=== PATIENT | female | born 1995 | race Hispanic/Latino ===

== ENCOUNTER 2020-02-03 12:02 | Outpatient (CLI) | payer OTHER, SELFPAY ==
[2020-02-03 17:48] LABS: Basophils Percent Auto 0.2 % (0.2-1.2); Eosinophils Percent Auto 0.5 % (0-4.4); Hematocrit 34.4 % (37.0-47.0); Hemoglobin 11.4 g/dL (12.0-15.0); Immature Granulocyte Absolute 0.04 K/mm3 (0.00-0.031); Immature Granulocyte Percent A 0.6 % (0-0.5); Lymphocytes Absolute Auto 1.93 K/mm3 (0.9-3.2); Lymphocytes Percent Auto 29.4 % (18.3-44.2); Mean Corpuscular HGB Conc 33.1 g/dl (32-36); Mean Corpuscular Volume 96.6 fl (80-100); Mean Platelet Volume 9.8 fl (7.4-10.4); Monocytes Absolute Auto 0.4 K/mm3 (0.1-0.6); Monocytes Percent Auto 6.7 % (2.6-8.5); Neutrophils Absolute Auto 4.1 K/mm3 (1.3-6.7); Neutrophils Percent Auto 62.6 % (45.5-73.1); Platelet Count Result 183 k/mm3 (150-375); Red Blood Count 3.56 M/mm3 (4.2-5.4); White Blood Count 6.6 K/mm3 (4.5-10.0)
[2020-02-03 17:58] LABS: Glucose 1 Hour PP 50gm Dose 96 mg/dL
[2020-02-03 18:40] LABS: HIV 1/2 Ab P24 Ag Result Negative (Negative)
[2020-02-06 11:56] LABS: Rapid Plasma Reagin Non-Reactive (NonReactive)
== END 2020-02-03 12:03 | disposition home or self-care (01) ==
LOC: ANHOBOP 03-19 12:04
PROVIDERS: PCP Physician Assistant; Visit Provider Student in an Organized Health Care Education/Training Program
DX: Z34.90 Encounter for supervision of normal pregnancy, unspecified, unspecified trimester (principal); Z3A.00 Weeks of gestation of pregnancy not specified
CPT/HCPCS: 36415; 82947; 85025; 86592; 86703; G0432

== ENCOUNTER 2020-03-19 18:37 | Outpatient (CLI) | payer OTHER, SELFPAY ==
[2020-03-19 18:56] VITALS: BP 144/81; PULSE 79
[2020-03-19 19:06] VITALS: BP 137/74; PULSE 77
[2020-03-19 19:13] LABS: Basophils Percent Auto 0.1 % (0.2-1.2); Eosinophils Percent Auto 0.3 % (0-4.4); Hematocrit 30.7 % (37.0-47.0); Hemoglobin 10.2 g/dL (12.0-15.0); Immature Granulocyte Absolute 0.04 K/mm3 (0.00-0.031); Immature Granulocyte Percent A 0.6 % (0-0.5); Lymphocytes Percent Auto 26.8 % (18.3-44.2); Mean Corpuscular HGB Conc 33.2 g/dl (32-36); Mean Corpuscular Hemoglobin 30.6 pg (26-34); Mean Corpuscular Volume 92.2 fl (80-100); Mean Platelet Volume 10.8 fl (7.4-10.4); Monocytes Absolute Auto 0.5 K/mm3 (0.1-0.6); Monocytes Percent Auto 7.5 % (2.6-8.5); Neutrophils Absolute Auto 4.3 K/mm3 (1.3-6.7); Neutrophils Percent Auto 64.7 % (45.5-73.1); Platelet Count Result 150 k/mm3 (150-375); Red Blood Count 3.33 M/mm3 (4.2-5.4); Red Cell Distribution Width 12.6 % (11.5-14.5); White Blood Count 6.7 K/mm3 (4.5-10.0)
[2020-03-19 19:16] VITALS: BP 137/75; PULSE 73
[2020-03-19 19:18] LABS: Creatinine Urine 171.1 mg/dL; Total Protein Urine Random 15 mg/dL; Ur Ttl Prot Creatinine Ratio 0.09 mg/mg (0-0.20)
[2020-03-19 19:26] LABS: Add Urine Microscopic? YES; Appearance Urine Cloudy (Clear); Bacteria Urine Trace /hpf; Bilirubin Urine Negative (Negative); Blood Urine Negative (Negative); Color Urine Yellow (Yellow); Glucose Urine UA Negative (Negative); Ketones Urine Negative (Negative); Leukocyte Esterase Ur 1+ LEU/UL (NEGATIVE); Mucus Urine Moderate /lpf; Nitrate Urine Negative (Negative); Protein Urine 1+ mg/dL (Negative); Squamous Epithelial Cell Urine Many /hpf (Few)
[2020-03-19 19:27] LABS: Alanine Aminotransferase 21 U/L (4-35); Albumin Level 3.5 g/dL (3.5-5.1); Alkaline Phosphatase 80 U/L (38-126); Anion Gap 6 mmol/L (8-16); Aspartate Amino Transferase 25 U/L (14-36); Bilirubin,Total 0.3 mg/dL (0.2-1.3); Blood Urea Nitrogen 8 mg/dL (7-17); Calcium 9.1 mg/dL (8.4-10.2); Carbon Dioxide 24 mmol/L (22-30); Chloride 105 mmol/L (98-107); Estimated Glomerular Filt Rate > 60; Glucose 101 mg/dL (65-105); Potassium 3.6 mmol/L (3.4-5.0); Sodium 135 mmol/L (137-145)
[2020-03-19 19:31] VITALS: BP 136/76; PULSE 77
[2020-03-19 19:35] VITALS: BP 136/76; PULSE 79
== END 2020-03-19 20:00 | disposition home or self-care (01) ==
LOC: ANHOBOP 18:44 → ANHOBPP 03-26 08:54
PROVIDERS: PCP Physician Assistant; Visit Provider Student in an Organized Health Care Education/Training Program
DX: O13.3 Gestational [pregnancy-induced] hypertension without significant proteinuria, third trimester (principal); Z3A.39 39 weeks gestation of pregnancy
CPT/HCPCS: 36415; 59025; 80053; 81001; 82570; 84156; 84550; 85025; 87086; 99199

== ENCOUNTER 2020-03-21 13:10 | Outpatient (CLI) | payer OTHER, SELFPAY ==
--- NOTE | ~2020-03-21 | US_ITS ---
EXAMINATION: US OB follow up DATE: 03/21/2020 14:00 INDICATION: Assess growth and position during third trimester of . TECHNIQUE: Real-time ultrasound of the pelvis was performed. The interpreting radiologist was not pre sent for the study. COMPARISON: None. FINDINGS: There is a single living fetus in breech presentation. The placenta is fundal. heart rate is 1 33 beats per minute (bpm). The amniotic fluid index is 9.1 cm, which is normal (5th%-95%: 7.9-24.9 c m at 35 weeks estimated gestational age). The following biometric data were obtained: BPD: 9.4 cm -> 38 weeks 1 days Head circumference: 33.7 cm -> 38 weeks 4 days Abdominal circumference: 33.5 cm -> 37 weeks 3 days Femur length: 7.6 cm -> 38 weeks 6 days These measurements are concordant. Head circumference to abdominal circumference ratio: 1.00 (normal range 0.89-1.06). Estimated weight: 3366 g (+/-) 505 g. or 7 lbs. 7 oz. (+/-) 1 lbs. 2 oz. IMPRESSION: 1. Single living fetus in breech presentation with heart rate of 133 bpm. 2. Gestational age by ultrasound of 38 weeks 2 day(s) +/- 2 week(s) 5 day(s) with ultrasound estimate d date of delivery (PJ) of 04/02/2020. Estimated weight is 97th percentile by Hadlock criteria when 04/21/2020 is used as the PJ. Please correlate with clinical information or earlier ultrasounds for most accurate PJ. 3. Normal amniotic fluid index of 9.1 cm. Reviewed, dictated and finalized at location A. AND [employer] OPERATOR IMPRESSION: 1. Single living fetus in breech presentation with heart rate of 133 bpm. 2. Gestational age by ultrasound of 38 weeks 2 day(s) +/- 2 week(s) 5 day(s) wi th ultrasound estimated date of delivery (PJ) of 04/02/2020. Estimated w eight is 97th percentile by Hadlock criteria when 04/21/2020 is used as the PJ. Please correlate with clinical information or earlier ultrasounds for most accu rate PJ. 3. Normal amniotic fluid index of 9.1 cm.
== END 2020-03-21 13:11 | disposition home or self-care (01) ==
PROVIDERS: PCP Physician Assistant; Visit Provider Student in an Organized Health Care Education/Training Program
DX: Z36.89 Encounter for other specified antenatal screening (principal); Z3A.38 38 weeks gestation of pregnancy
CPT/HCPCS: 76816

== ENCOUNTER 2020-03-29 19:30 | Outpatient (CLI) | payer OTHER, SELFPAY ==
[2020-03-29 20:09] LABS: Basophils Percent Auto 0.1 % (0.2-1.2); Eosinophils Percent Auto 0.3 % (0-4.4); Hematocrit 30.3 % (37.0-47.0); Hemoglobin 10.2 g/dL (12.0-15.0); Immature Granulocyte Absolute 0.08 K/mm3 (0.00-0.031); Lymphocytes Absolute Auto 2.34 K/mm3 (0.9-3.2); Lymphocytes Percent Auto 30.7 % (18.3-44.2); Mean Corpuscular HGB Conc 33.7 g/dl (32-36); Mean Corpuscular Hemoglobin 30.5 pg (26-34); Mean Corpuscular Volume 90.7 fl (80-100); Mean Platelet Volume 11.1 fl (7.4-10.4); Monocytes Absolute Auto 0.5 K/mm3 (0.1-0.6); Monocytes Percent Auto 6.4 % (2.6-8.5); Neutrophils Absolute Auto 4.7 K/mm3 (1.3-6.7); Neutrophils Percent Auto 61.5 % (45.5-73.1); Platelet Count Result 162 k/mm3 (150-375); Red Blood Count 3.34 M/mm3 (4.2-5.4); Red Cell Distribution Width 13.2 % (11.5-14.5); White Blood Count 7.6 K/mm3 (4.5-10.0)
[2020-03-29 20:14] LABS: Add Urine Microscopic? YES; Appearance Urine Cloudy (Clear); Bacteria Urine 2+ /hpf; Bilirubin Urine Negative (Negative); Blood Urine 1+ (Negative); Color Urine Yellow (Yellow); Glucose Urine UA Negative (Negative); Ketones Urine Negative (Negative); Leukocyte Esterase Ur 1+ LEU/UL (NEGATIVE); Mucus Urine Rare /lpf; Nitrate Urine Negative (Negative); Protein Urine 1+ mg/dL (Negative); RBC Urine 0-2 /hpf (0-2); Specific Grav Ur 1.015 (1.001-1.035); Squamous Epithelial Cell Urine Many /hpf (Few); Urobilinogen Urine Negative mg/dL (<2.0)
[2020-03-29 20:17] LABS: Creatinine Urine 109.7 mg/dL; Total Protein Urine Random 14 mg/dL; Ur Ttl Prot Creatinine Ratio 0.13 mg/mg (0-0.20)
[2020-03-29 20:21] LABS: Alanine Aminotransferase 30 U/L (4-35); Albumin Level 3.5 g/dL (3.5-5.1); Alkaline Phosphatase 100 U/L (38-126); Anion Gap 6 mmol/L (8-16); Aspartate Amino Transferase 30 U/L (14-36); Bilirubin,Total 0.4 mg/dL (0.2-1.3); Blood Urea Nitrogen 10 mg/dL (7-17); Carbon Dioxide 22 mmol/L (22-30); Chloride 104 mmol/L (98-107); Estimated Glomerular Filt Rate > 60; Glucose 101 mg/dL (65-105); Potassium 3.6 mmol/L (3.4-5.0); Sodium 132 mmol/L (137-145); Uric Acid 5.2 mg/dL (2.5-7.5)
== END 2020-03-29 20:41 | disposition home or self-care (01) ==
PROVIDERS: Obstetrics & Gynecology; PCP Physician Assistant; Visit Provider Student in an Organized Health Care Education/Training Program
DX: O13.9 Gestational [pregnancy-induced] hypertension without significant proteinuria, unspecified trimester (principal); Z3A.00 Weeks of gestation of pregnancy not specified
CPT/HCPCS: 36415; 59025; 80053; 81001; 82570; 84156; 84550; 85025; 87086

== ENCOUNTER 2020-03-31 08:18 | Outpatient (RCR) | payer OTHER, SELFPAY ==
[2020-03-28 17:32] VITALS: BP 145/86; PULSE 86
[2020-03-31 08:42] VITALS: BP 130/76; PULSE 96
== END 2020-04-09 07:53 | disposition home or self-care (01) ==
LOC: ANHOBOP 08:18
PROVIDERS: PCP Physician Assistant; Visit Provider Student in an Organized Health Care Education/Training Program
DX: O16.3 Unspecified maternal hypertension, third trimester (principal); Z3A.36 36 weeks gestation of pregnancy; Z3A.37 37 weeks gestation of pregnancy
CPT/HCPCS: 59025

== ENCOUNTER 2020-04-03 09:35 | Inpatient (IN) | payer OTHER, SELFPAY ==
[2020-04-03] VITALS (86 sets, daily range): BP systolic 103–169; BP diastolic 51–117; PULSE 70–126; RESP 14–20; TEMP 36.2–36.7; O2SAT 89–100; BMI 33.9
--- NOTE | 2020-04-03 09:21 | PM.IMHP ---
H&P: HPI History of Present Illness Date/Time: 04/03/20 09:21 Chief Complaint: powers in the third trimester gestational hypertension malpresentation Narrative: Conchita Rodriguez is a 24 year old at 37wd who presents for ECV and possible delivery for breech positioning in the setting of worsening gestational hypertension. Pt has been complicated by gestational hypertension. Pt reports chronic headaches throughout the . She has had significant worsening of edema. Her blood pressures have continue to be elevated despite starting on antihypertensives. Her preeclampsia labwork has been negative. She has had regular testing which was reassuring. Review of Systems Review of Systems: All systems reviewed & are unremarkable except as noted in HPI and below PMFSH Family History Family History (Updated 03/21/20 @ 12:27 by Cecilia Posye RN) Mother Uterine cancer History of hysterectomy Grandparent Uterine cancer History of hysterectomy Social History Social History Substance use: never Spiritual care concerns: No Meds Home Medications and Allergies Home Medications Medication Instructions Recorded Confirmed Type polyethylene glycol 3350 [Miralax] 17 g PO DAILY PRN 03/21/20 03/31/20 History prenat.vits,aleida,[id number] 1 tablet PO DAILY 03/21/20 03/31/20 History [ #2] labetalol 200 mg PO Q12H 03/29/20 03/31/20 History Allergies Allergy/AdvReac Type Severity Reaction Status Date / Time No Known Allergies Allergy Verified 03/21/20 12:23 Exam Const: General: cooperative and healthy appearing Nutritional Appearance: well nourished Orientation/consciousness: patient oriented x3 Limitations: no limitations HENMT: Head: normal to inspection Eyes: General: appearance normal, both eyes and all related structures Neck: Neck: normal visual inspection and full ROM Resp: Effort & Inspection: normal respiratory effort and able to speak in complete sentences Auscultation: clear to auscultation bilaterally Cardio: Jugular venous distension: no JVD Rate: regular rate Rhythm: regular rhythm GI: Inspection: normal to inspection and other (Gravid) GI Palp: No abdominal tenderness and No Hepatomegaly present Auscultation: normal bowel sounds : OB/external & speculum: external exam normal; no bleeding Manual OB Exam: Deferred manual OB exam Skin: General skin exam: normal color and no rashes or lesions noted Neuro: General: patient oriented x3 Cranial nerves: Yes CN's II-XII intact bilaterally Cognition (Neuro): normal cognition Speech: normal speech Extrem: General: edema (lower extremity ) bilateral Psych: Appearance: grossly normal Mental Status: mental status grossly normal Assessment and Plan Assessment and plan (1) Supervision of high risk , unspecified, third trimester: Code(s): O09.93 - Supervision of high risk , unspecified, third trimester Status: Acute Assessment and Plan: 24 yo at 37w3d Rh + GBS +, will need PCN in case of induction FHT cat 1 no ctx on toco EFW by US [id number] on 04/02/20 Breech presentation, plan for ECV followed by IOL for GHTN if successful if ECV unsuccessful will plan for primary delivery for breech presentation (2) Gestational hyperglycemia: Code(s): O99.810 - Abnormal glucose complicating Status: Acute Assessment and Plan: Pt with worsening GHTN pt reports persistent COULTER throughout and worsening LE edema preeclampsia labls neg for proteinuria or end organ disease pt has been compliant with twice weekly NSTs, all reactive US showed EFW of 8lb4oz on 04/02, breech presentation BP remain elevated despite starting antihypertensive 1 week ago plan for delivery >37w for worsening GHTN (3) malpresentation: Code(s): O32.9XX0 - Maternal care for malpresentation of fetus, unspecified, not ap
[2020-04-03 10:37] LABS: Basophils Percent Auto 0.1 % (0.2-1.2); Eosinophils Percent Auto 0.3 % (0-4.4); Hematocrit 32.5 % (37.0-47.0); Hemoglobin 10.6 g/dL (12.0-15.0); Immature Granulocyte Absolute 0.06 K/mm3 (0.00-0.031); Immature Granulocyte Percent A 0.8 % (0-0.5); Lymphocytes Absolute Auto 1.69 K/mm3 (0.9-3.2); Lymphocytes Percent Auto 22.1 % (18.3-44.2); Mean Corpuscular HGB Conc 32.6 g/dl (32-36); Mean Corpuscular Hemoglobin 29.4 pg (26-34); Mean Corpuscular Volume 90.3 fl (80-100); Mean Platelet Volume 10.9 fl (7.4-10.4); Monocytes Absolute Auto 0.6 K/mm3 (0.1-0.6); Monocytes Percent Auto 7.7 % (2.6-8.5); Neutrophils Absolute Auto 5.3 K/mm3 (1.3-6.7); Nucleated Red Blood Cells Perc 0.3 % (0.0-0.2); Platelet Count Result 201 k/mm3 (150-375); Red Cell Distribution Width 13.8 % (11.5-14.5); White Blood Count 7.6 K/mm3 (4.5-10.0)
[2020-04-03 10:50] LABS: Alanine Aminotransferase 33 U/L (4-35); Albumin Level 3.8 g/dL (3.5-5.1); Alkaline Phosphatase 120 U/L (38-126); Anion Gap 10 mmol/L (8-16); Aspartate Amino Transferase 33 U/L (14-36); Bilirubin,Total 0.5 mg/dL (0.2-1.3); Blood Urea Nitrogen 9 mg/dL (7-17); Calcium 9.1 mg/dL (8.4-10.2); Carbon Dioxide 20 mmol/L (22-30); Chloride 106 mmol/L (98-107); Estimated CRCL calculation 136 ml/min; Estimated Glomerular Filt Rate > 60; Glucose 80 mg/dL (65-105); Potassium 4.2 mmol/L (3.4-5.0); Sodium 136 mmol/L (137-145); Uric Acid 5.3 mg/dL (2.5-7.5)
--- NOTE | 2020-04-03 11:10 | LDADM ---
This patient, Conchita Rodriguez, was admitted to Labor/Delivery/Recovery 119 on 04/03/20 at 09:35. Plans for labor, pain management and were discussed with patient. Patient/family oriented to hospital policies and general routines including ID bracelet, bed and alarms, visiting hours, pain management, procedures, bathroom and other care routines, personal items, smoking policy, room service/diet and guest tray routines, infant security routines, and visiting hours. Patient/Family are encouraged to report perceived risks to care and to ask questions if they do not understand what they are told or what they should do. See OBIX for further documentation.
[2020-04-03] MEDS: TERBUTALINE SULFATE 1 MG/ML VIAL 0.25 MG SUB-Q (11:37)
--- NOTE | 2020-04-03 11:42 | WPDANESEPPF ---
Anes - Initial Pre Proc Eval Procedure: Operation Date: 04/03/20 12:00 Proposed Procedures p Section - David Pizarro MD Date/Time: 04/03/20 11:42 Surgeon: David Pizarro MD Pre Op Diagnosis: Version/Section Patient Data Age: 24 Gender: F Height: 1.65 m Weight: 92.5 kg Last Vital Signs Pulse 82 04/03/20 11:16 BP 134/84 04/03/20 11:16 Allergies Allergy/AdvReac Type Severity Reaction Status Date / Time No Known Allergies Allergy Verified 03/21/20 12:23 Home Medications Medication Instructions Recorded Confirmed Type polyethylene glycol 3350 [Miralax] 17 g PO DAILY PRN 03/21/20 03/31/20 History prenat.vits,aleida,[id number]-[id number] 1 tablet PO DAILY 03/21/20 03/31/20 History [ #2] labetalol 200 mg PO Q12H 03/29/20 03/31/20 History Laboratory Tests 04/03/20 04/03/20 04/03/20 10:21 10:21 10:21 WBC 7.6 K/mm3 K/mm3 (4.5-10.0) RBC 3.60 M/mm3 L M/mm3 (4.2-5.4) Hgb 10.6 g/dL L g/dL (12.0-15.0) Hct 32.5 % L % (37.0-47.0) MCV 90.3 fl fl (80-100) MCH 29.4 pg pg (26-34) MCHC 32.6 g/dl g/dl (32-36) RDW 13.8 % % (11.5-14.5) Plt Count 201 k/mm3 k/mm3 (150-375) MPV 10.9 fl H fl (7.4-10.4) Immature Gran % (Auto) 0.8 % H % (0-0.5) Neut % (Auto) 69.0 % % (45.5-73.1) Lymph % (Auto) 22.1 % % (18.3-44.2) [place] % (Auto) 7.7 % % (2.6-8.5) Eos % (Auto) 0.3 % % (0-4.4) Baso % (Auto) 0.1 % L % (0.2-1.2) Lymph # (Auto) 1.69 K/mm3 K/mm3 (0.9-3.2) [place] # (Auto) 0.6 K/mm3 K/mm3 (0.1-0.6) Eos # (Auto) 0.0 K/mm3 K/mm3 (0-0.3) Baso # (Auto) 0.0 K/mm3 K/mm3 (0.0-0.1) Abs Immat Gran (auto) 0.06 K/mm3 H K/mm3 (0.00-0.031) Absolute Neuts (auto) 5.3 K/mm3 K/mm3 (1.3-6.7) Absolute Nucleated RBC 0.0 K/mm3 K/mm3 (0.0-0.012) Nucleated RBC % 0.3 % H % (0.0-0.2) Sodium Potassium Chloride Carbon Dioxide Anion Gap BUN Creatinine Estim Creat Clear Calc Estimated GFR Glucose Uric Acid Calcium Total Bilirubin AST ALT Alkaline Phosphatase Total Protein Albumin RPR Pending HIV 1&2 Ab/P24 Ag 4thGn Blood Type A Positive Antibody Screen Negative 04/03/20 04/03/20 10:23 10:26 WBC RBC Hgb Hct MCV MCH MCHC RDW Plt Count MPV Immature Gran % (Auto) Neut % (Auto) Lymph % (Auto) [place] % (Auto) Eos % (Auto) Baso % (Auto) Lymph # (Auto) [place] # (Auto) Eos # (Auto) Baso # (Auto) Abs Immat Gran (auto) Absolute Neuts (auto) Absolute Nucleated RBC Nucleated RBC % Sodium 136 mmol/L L mmol/L (137-145) Potassium 4.2 mmol/L mmol/L (3.4-5.0) Chloride 106 mmol/L mmol/L (98-107) Carbon Dioxide 20 mmol/L L mmol/L (22-30) Anion Gap 10 mmol/L mmol/L (8-16) BUN 9 mg/dL mg/dL (7-17) Creatinine 0.60 mg/dL L mg/dL (0.7-1.0) Estim Creat Clear Calc 136 ml/min ml/min Estimated GFR > 60 (59 - ) Glucose 80 mg/dL mg/dL (65-105) Uric Acid 5.3 mg/dL mg/dL (2.5-7.5) Calcium 9.1 mg/dL mg/dL (8.4-10.2) Total Bilirubin 0.5 mg/dL mg/dL (0.2-1.3) AST 33 U/L U/L (14-36) ALT 33 U/L U/L (4-35) Alkaline Phosphatase 120 U/L U/L (38-126) Total Protein 7.0 g/dL g/dL (6.3-8.2) Albumin 3.8 g/dL g/dL (3.5-5.1) RPR HIV 1&2 A
[2020-04-03] MEDS: ceFAZolin 2 GM/D5W 50 ML 2 GM/50 ML BAG IVPB (12:25)
[2020-04-03 12:28] LABS: HIV 1/2 Ab P24 Ag Result Negative (Negative)
--- NOTE | 2020-04-03 13:21 | P.OP_ITS ---
Procedure Note - Detailed Date of procedure: 04/03/20 Pre-op diagnosis: Version/Section Post-op diagnosis: same Procedure performed: External cephalic version Description of procedure: The patient was counseled as above. Risks, benefits, and alternatives of ECV were discussed. Sonogram confirmed that the fetus was in breech position and no evidence of a nuchal cord with color doppler. The NST was reactive. The patient has no medical contraindications for terbutaline administration. Terbutaline 0.25mg sq was given by the RN. Epidural was placed by anesthesia in the OR. The patent was placed in the supine position with a leftward tilt. Bedside US again confirmed breech presentation with the head in the RUQ and the back up. Decision was made to proceed with a forward role technique in a Counter-clockwise fashion. The buttocks was lifted out of the pelvis with direct suprapubic pressure. Once the fetus was disengaged, pressure was applied to the head to role in a counter-clockwise direction. Pressure was also applied to the buttock to rotate counter-clockwise cephalad. Direct BSUS was again performed to check postition. The version was unsuccessful on the first attempt. FHT were noted to be reassuring. The procedure was attempted 3 other times with monitoring of FHT between attempts. The position was unable to be rotated to vertex. The fetus was placed back on the monitor following the p rocedure. FHT were noted to be 145 bpm. Decision was made to proceed with primary delivery given malpresentation in the setting of gestational hypertension. Anesthesia: epidural Surgeon: David Pizarro MD Estimated blood loss (mL): 0 Drains: No Packing: No Pathology: none sent Complications: No immediate complications Condition: stable Disposition: floor
--- NOTE | 2020-04-03 13:23 | PM.PROC ---
Procedure Note - Detailed Date of procedure: 04/03/20 Pre-op diagnosis: Version/Section labor Post-op diagnosis: same Procedure performed: primary low transverse section Description of procedure: The patient was in the operating room where epidural anesthesia was found to be adequate after failed ECV. She was then prepped and draped in the usual sterile fashion in the dorsal supine position with a leftward tilt. A Pfannenstiel skin incision was then made with the scalpel and carried through to the underlying layer of fascia. The fascia was then incised in the midline and the incision extended laterally with the You scissors. The superior aspect of the fascia was then grasped with the Jakub clamps, elevated, and the underlying rectus muscles dissected off bluntly and sharply. Attention was then turned to the inferior aspect of this incision which, in a similar fashion, was grasped, tented up with the Jakub clamps, and the rectus muscles dissected off both bluntly and sharply. The rectus muscles were then in the midline, and the peritoneum identified, tented up, and entered sharply with the Metzenbaum scissors. The peritoneal incision was then extended superiorly and inferiorly with good visualization of the bladder. The bladder blade was then inserted and the vesicouterine peritoneum identified, grasped with the pick-ups and entered sharply with the Metzenbaum scissors. This incision was then extended laterally and the bladder flap created digitally. The bladder blade was then reinserted and the lower uterine segment incised in a low, transverse fashion with the scalpel. The uterine incision was then extended in a cephalad-caudad direction bluntly. The bladder blade was removed. The buttocks and back were identified. The hips were grasped and uday to the hysterotomy. Gentle fundal pressure was applied to help deliver the buttocks to the level of the hips. The legs were flexed at the knee and delivered one at a time. Gentle traction was placed to the body to deliver to the leve of the shoulders. The right arm was flexed at the elbow and delivered. The steps were repeated to deliver the left arm. The head was flexed and delivered atraumatically. The cord was clamped and cut. The infant was handed off to the waiting pediatricians (staff). Cord gasses were sent. The placenta was then removed manually, the uterus exteriorized, and cleared of all clots and debris. The uterine incision was repaired with 0 monocryl in a running fashion. A second imbrication layer of 0-monocryl was placed. The uterus was returned to the abdomen. The uterus was then reinspected to ensure hemostasis as were all subfascial tissues. The peritoneum was re-approximated with 3-0 vicryl in a running fashion. The fascia was reapproximated with 0 vicryl in a running fashion. The subcutaneous layer was copiously irrigated. The subcutaneous tissue was reapproximated using 3-0 Vicryl in a running fashion. The skin was closed with 4-0 vicryl. The patient tolerated the procedure well. Sponge, lap and needle counts were correct times three. The patient was taken to the recovery room in stable condition. Anesthesia: epidural Surgeon: David Pizarro MD Estimated blood loss (mL): 680 IV fluids (mL): 1,000 Urine output (mL): 150 Drains: No Packing: No Pathology: none sent Complications: No immediate complications Condition: stable Disposition: floor ( ) Findings: normal appearing uterus, fallopian tubes and ovaries bilaterally
[2020-04-03] MEDS: LACTATED RINGERS 1,000 ML 125 ML IV CONT (14:12)
[2020-04-03] MEDS: fentaNYL CITRATE INJ (*CRX) 100 MCG/2 ML VIAL 25 MCG IV PUSH ×3 (14:50→15:10)
[2020-04-03] MEDS: LABETALOL HCL INJ 100 MG/20 ML VIAL 20 MG IV PUSH (15:40)
[2020-04-03] MEDS: OXYTOCIN 30 UNITS/NS 500 ML 30 UNITS/500 ML BAG 125 UNITS IV CONT (16:00)
[2020-04-03] MEDS: LABETALOL HCL INJ 100 MG/20 ML VIAL 40 MG IV PUSH (16:14)
[2020-04-03] MEDS: MAGNESIUM SULF 4 GM/WATER100ML 4 GM/100 ML BAG IVPB (17:36)
[2020-04-03] MEDS: MAGNESIUM SULF 20GM/WATER500ML 500 ML 50 MG IV CONT (18:15)
[2020-04-04] MEDS: LACTATED RINGERS 1,000 ML 75 ML IV CONT ×2 (00:04→12:45)
[2020-04-04] MEDS: IBUPROFEN 600 MG TABLET PO ×3 (00:29→16:33)
[2020-04-04] MEDS: HYDROcodone/acetaminophen (*CRX) 5-325 MG TABLET 1 TAB PO ×5 (00:29→20:25)
[2020-04-04 00:30] VITALS: BP 142/92; PULSE 105; RESP 17; TEMP 37.2; O2SAT 99
[2020-04-04] MEDS: MAGNESIUM SULF 20GM/WATER500ML 500 ML 50 MG IV CONT ×2 (02:02→12:45)
[2020-04-04 05:20] VITALS: BP 119/76; PULSE 96; RESP 17; TEMP 37.1; O2SAT 99
[2020-04-04 06:09] LABS: Basophils Percent Auto 0.1 % (0.2-1.2); Hematocrit 25.2 % (37.0-47.0); Hemoglobin 8.2 g/dL (12.0-15.0); Immature Granulocyte Absolute 0.06 K/mm3 (0.00-0.031); Immature Granulocyte Percent A 0.8 % (0-0.5); Lymphocytes Absolute Auto 1.54 K/mm3 (0.9-3.2); Lymphocytes Percent Auto 19.3 % (18.3-44.2); Mean Corpuscular HGB Conc 32.5 g/dl (32-36); Mean Corpuscular Hemoglobin 29.6 pg (26-34); Mean Platelet Volume 10.6 fl (7.4-10.4); Monocytes Absolute Auto 0.6 K/mm3 (0.1-0.6); Neutrophils Absolute Auto 5.8 K/mm3 (1.3-6.7); Neutrophils Percent Auto 72.8 % (45.5-73.1); Platelet Count Result 192 k/mm3 (150-375); Red Blood Count 2.77 M/mm3 (4.2-5.4); Red Cell Distribution Width 13.8 % (11.5-14.5)
[2020-04-04 06:20] LABS: Alanine Aminotransferase 23 U/L (4-35); Alkaline Phosphatase 88 U/L (38-126); Anion Gap 2 mmol/L (8-16); Aspartate Amino Transferase 31 U/L (14-36); Bilirubin,Total 0.3 mg/dL (0.2-1.3); Blood Urea Nitrogen 9 mg/dL (7-17); Calcium 7.1 mg/dL (8.4-10.2); Carbon Dioxide 28 mmol/L (22-30); Chloride 103 mmol/L (98-107); Estimated CRCL calculation 104 ml/min; Estimated Glomerular Filt Rate > 60; Glucose 98 mg/dL (65-105); Potassium 4.2 mmol/L (3.4-5.0); Sodium 133 mmol/L (137-145); Uric Acid 5.2 mg/dL (2.5-7.5)
[2020-04-04 06:26] LABS: Creatinine Urine 16.5 mg/dL; Total Protein Urine Random 15 mg/dL; Ur Ttl Prot Creatinine Ratio 0.91 mg/mg (0-0.20)
--- NOTE | 2020-04-04 07:22 | PM.OBPNVD ---
OB - PN: Subj Subjective Date/time seen: 04/04/20 07:22 Interval history: Patient doing well this AM. She has not yet ambulated out of bed. She is tolerating PO. She reports adequate pain control. Her bleeding is normal and she reports normal lochia. She denies fever, chills, N/V. She has not yet passed flatus. She is tolerating the magnesium well. She denies any change in vision, shortness of breath, COULTER, RUQ pain. Pt BP have been well controlled overnight. Patient comments: no complaints and pain well controlled; no flatus present OB - PN: Obj Data Labs CBC & Chem 7: 04/04/20 05:51 04/04/20 05:51 Labs: Laboratory Results - last 24 hr 04/03/20 04/03/20 04/03/20 10:21 10:21 10:23 WBC 7.6 RBC 3.60 L Hgb 10.6 L Hct 32.5 L MCV 90.3 MCH 29.4 MCHC 32.6 RDW 13.8 Plt Count 201 MPV 10.9 H Immature Gran % (Auto) 0.8 H Neut % (Auto) 69.0 Lymph % (Auto) 22.1 [place] % (Auto) 7.7 Eos % (Auto) 0.3 Baso % (Auto) 0.1 L Lymph # (Auto) 1.69 [place] # (Auto) 0.6 Eos # (Auto) 0.0 Baso # (Auto) 0.0 Abs Immat Gran (auto) 0.06 H Absolute Neuts (auto) 5.3 Absolute Nucleated RBC 0.0 Nucleated RBC % 0.3 H Sodium Potassium Chloride Carbon Dioxide Anion Gap BUN Creatinine Estim Creat Clear Calc Estimated GFR Glucose Uric Acid Calcium Total Bilirubin AST ALT Alkaline Phosphatase Total Protein Albumin U Random Total Protein Urine Creatinine Protein/Creat Ratio 2 HIV 1&2 Ab/P24 Ag 4thGn Negative Blood Type A Positive Antibody Screen Negative 04/03/20 04/04/20 04/04/20 10:26 05:51 05:51 WBC RBC Hgb Hct MCV MCH MCHC RDW Plt Count MPV Immature Gran % (Auto) Neut % (Auto) Lymph % (Auto) [place] % (Auto) Eos % (Auto) Baso % (Auto) Lymph # (Auto) [place] # (Auto) Eos # (Auto) Baso # (Auto) Abs Immat Gran (auto) Absolute Neuts (auto) Absolute Nucleated RBC Nucleated RBC % Sodium 136 L 133 L Potassium 4.2 4.2 Chloride 106 103 Carbon Dioxide 20 L 28 Anion Gap 10 2 L BUN 9 9 Creatinine 0.60 L 0.80 Estim Creat Clear Calc 136 104 Estimated GFR > 60 > 60 Glucose 80 98 Uric Acid 5.3 5.2 Calcium 9.1 7.1 L Total Bilirubin 0.5 0.3 AST 33 31 ALT 33 23 Alkaline Phosphatase 120 88 Total Protein 7.0 6.0 L Albumin 3.8 3.0 L U Random Total Protein 15 Urine Creatinine 16.5 Protein/Creat Ratio 2 0.91 H HIV 1&2 Ab/P24 Ag 4thGn Blood Type Antibody Screen 04/04/20 05:51 WBC 8.0 RBC 2.77 L Hgb 8.2 L Hct 25.2 L MCV 91.0 MCH 29.6 MCHC 32.5 RDW 13.8 Plt Count 192 MPV 10.6 H Immature Gran % (Auto) 0.8 H Neut % (Auto) 72.8 Lymph % (Auto) 19.3 [place] % (Auto) 7.0 Eos % (Auto) 0.0 Baso % (Auto) 0.1 L Lymph # (Auto) 1.54 [place] # (Auto) 0.6 Eos # (Auto) 0.0 Baso # (Auto) 0.0 Abs Immat Gran (auto) 0.06 H Absolute Neuts (auto) 5.8 Absolute Nucleated RBC 0.0 Nucleated RBC % 0.0 Sodium Potassium Chloride Carbon Dioxide Anion Gap BUN Creatinine Estim Creat Clear Calc Estimated GFR Glucose Uric Acid Calcium Total Bilirubin AST ALT Alkaline Phosphatase Total Protein Albumin U Random Total Protein Urine Creatinine Protein/Creat Ratio 2 HIV 1&2 Ab/P24 Ag 4thGn Blood Type Antibody Screen OB - PN A/P Plan day: 1 Plan: routine care Comments: patient doing well this AM will plan to D/C vyas once ambulating patient tolerating PO H/H 8.06/07, will start supplemental iron today POD#1 labs return wnl except for urine proteinuria giving the patient the diagnosis of preeclampsia BP have been controlled overnight on magnesium sulfate, will continue for 24 hrs of therapy to prevent eeclampsia Pt with good urine output, lugs CTABL will star
[2020-04-04] MEDS: NIFEdipine 30 MG TAB.ER.24 PO (08:42)
[2020-04-04] MEDS: DOCUSATE SODIUM 100 MG CAPSULE PO ×2 (08:43→21:24)
[2020-04-04] MEDS: SIMETHICONE 80 MG TAB.CHEW PO ×3 (08:43→20:25)
[2020-04-04] MEDS: POLYSACCHARIDE IRON COMPLEX 150 MG CAPSULE PO (08:43)
[2020-04-04] MEDS: MULTIVIT/MIN/PREN/FOL AC/IRON TABLET 1 TAB PO (08:43)
[2020-04-04 09:50] VITALS: BP 141/86; PULSE 95; RESP 18; TEMP 36.9; O2SAT 99
--- NOTE | 2020-04-04 11:38 | WPDANLDPN2 ---
Anes-Prog Note L&D Date/Time: 04/04/20 11:38 Comfortable throughout: section Neuraxial method: epidural Epidural/Spinal procedure site: clean & non-tender Neuro status: Neuro function grossly intact. Cardiovascular status: normal Respiratory status: normal Airway patency: baseline Mental status: baseline Post-Op hydration status: normal Vital Signs: Last Vital Signs Temp 36.9 C 04/04/20 09:50 Pulse 95 04/04/20 09:50 Resp 18 04/04/20 09:50 BP 141/86 H 04/04/20 09:50 Pulse Ox 99 04/04/20 09:50 Pain score (VAS): 2 I/O: Intake & Output 04/03/20 04/04/20 04/04/20 23:59 07:59 15:59 Intake Total 4100 Output Total 425 4350 Balance -425 -250 Post-procedural complaints: pruritis mild, no treatment Patient feedback: Patient satisfied with anesthetic care.
--- NOTE | 2020-04-04 11:38 | WPDANLDNPN2 ---
Anes-Prog Note L&D-Neuraxial Date/Time: 04/04/20 11:38 Neuraxial medications: epidural PF morphine Opiod-related complaints: pruritis mild, no treatment Patient feedback: Patient satisfied with post-operative pain management.
[2020-04-04 13:20] VITALS: BP 134/69; PULSE 91; RESP 18; TEMP 36.6; O2SAT 99
[2020-04-04 13:43] LABS: Rapid Plasma Reagin Non-Reactive (NonReactive)
[2020-04-04 19:51] VITALS: BP 143/80; PULSE 96; RESP 18; TEMP 36.7; O2SAT 99
[2020-04-05] MEDS: IBUPROFEN 600 MG TABLET PO (01:27)
[2020-04-05] MEDS: HYDROcodone/acetaminophen (*CRX) 5-325 MG TABLET 1 TAB PO ×2 (01:28→01:51)
[2020-04-05] MEDS: HYDROcodone/acetaminophen (*CRX) 10-325 MG TABLET 1 TAB PO ×3 (05:17→13:13)
[2020-04-05 05:20] VITALS: BP 139/81; PULSE 88; RESP 17; TEMP 36.9; O2SAT 98
[2020-04-05] MEDS: SIMETHICONE 80 MG TAB.CHEW PO ×3 (05:20→13:13)
[2020-04-05 08:05] VITALS: BP 134/83; PULSE 88; RESP 18; TEMP 36.9; O2SAT 99
--- NOTE | 2020-04-05 08:49 | PM.OBPNVD ---
OB - PN: Subj Subjective Date/time seen: 04/05/20 08:49 Narrative: Pain OK. Tolerating diet. Would like to go home. OB - PN: Obj Data Labs CBC & Chem 7: 04/04/20 05:51 04/04/20 05:51 Labs: Laboratory Results - last 24 hr 04/03/20 10:21 RPR Non-reactive OB - PN A/P Plan Comments: A: POD#2, doing well. P: Home to f/u 4 weeks. Exam Narrative: Exam Narrative: AVSS ABD soft, nontender, fundus firm. Incision c/d/i. EXT nontender
[2020-04-05 09:00] VITALS: PULSE 91; RESP 16; O2SAT 95
[2020-04-05] MEDS: MULTIVIT/MIN/PREN/FOL AC/IRON TABLET 1 TAB PO (09:12)
[2020-04-05] MEDS: POLYSACCHARIDE IRON COMPLEX 150 MG CAPSULE PO (09:12)
[2020-04-05] MEDS: NIFEdipine 30 MG TAB.ER.24 PO (09:12)
[2020-04-05] MEDS: DOCUSATE SODIUM 100 MG CAPSULE PO (09:12)
[2020-04-05 11:30] VITALS: BP 143/87; PULSE 91; RESP 16; TEMP 37; O2SAT 95
--- NOTE | 2020-04-05 13:10 | PC.NURSE ---
1000 note; nurse visited with parents earlier this a.m.; made a plan for parents to call nurse for baby's next feeding; they did not call for LC. they bottle fed infant, and mother is continue to pump. Mother states that at this time, she wants to only pump and bottle feed . She states she might try to start putting infant to breast in a few weeks after her milk is in, but feels comfortable now because she knows how much baby is taking. Nurse affirmed mother's decision. Again today referred mother to her mother baby guide and breast feeding section once she is home, if she has a question or concern; but that mother can always call to office for help. And mother encouraged to call to make an appointment with LC for assistance with latch, if mother decides she wants to start putting to breast. Reviewed importance regular pumping to get her milk in and then to maintain her supply. Baby is taking her feedings well. Parents seem very happy and comfortable with this plan. They voiced understanding of all information shared.
[2020-04-07 14:02] VITALS: BP 137/88; PULSE 87; RESP 20; TEMP 37.6; O2SAT 100
--- NOTE | 2020-04-09 18:12 | PM.OBDSVD ---
DS: Admitting Diagnosis Admitting Diagnosis Admitting Diagnosis: intrauterine in the third trimester preeclampsia malpresentation OB - DS: Summary OB Procedures : None OB Procedures Intrapartum: OB Procedures: : None Peripartum Data Delivery Method: Section Procedures: Procedures Operation Date: 04/03/20 12:00 Actual Procedures Side Surgeon p Section David Pizarro MD complications: none Status at Discharge Functional status at discharge: independent ambulation Overall status at discharge: patient is progressing back to baseline Time Spent with Patient Time attestation: Total time spent providing and/or coordinating discharge services: Time spent: Less than 30 minutes Exam Const: General: comfortable and no acute distress Resp: Effort & Inspection: normal respiratory effort Auscultation: clear to auscultation bilaterally Cardio: Rate: regular rate GI: Inspection: non-distended GI Palp: Yes Soft to palpation, No Firmness to palpation present (GI), Yes Tenderness to palpation present (GI) (mild tenderness over incision ) and No Guarding due to palpation present (GI) Auscultation: normal bowel sounds Psych: Appearance: grossly normal Mental Status: mental status grossly normal DS: Data Data Completed and Pending Completed studies during hospitalization: Pending at discharge 04/03/20 12:41 Surgical [PTH] Routine Discharge Plan Discharge Attending physician on discharge: David Pizarro Consulting providers: Sami Corrigan Discharging Clinician: Kevin Simeon Patient Disposition: Home, Self-Care Activity: may shower, as tolerated and pelvic rest Diet: regular Wound Care Instructions: incision open to air Discharge Instructions: Education: Mom and Baby Guide Given to: Mother Follow-Up: Call your delivering provider's office for an appointment to be seen in: 1 Week for an incision check and then for a later regular exam Mom and baby should come to the [facility] for the follow-up appointment. Appointment Date/Time: April 07, 2020 at 1:30 pm What to expect at your follow-up visit: Blood Pressure Check Physical Assessment Call [phone] if you are unable to keep your appointment time. BREAST CARE: * Wear a snug supportive bra. * For engorgement discomfort: Bottle Feeding: * May apply ice packs ABDOMINAL INCISION: (if applicable) * Allow incision to air dry * Do NOT use lotions for powders on your incision * When showering, allow soap and water to run over the incision, but do not wash incision EPISIOTOMY/PERINEAL CARE: * Until bleeding stops, use your capo bottle after urinating * Change your pad frequently throughout the day * You may take sitz baths several times a day (fill your bathtub with warm water and soak for 20 minutes.) Do NOT bathe in the water * No tub baths until seen by your physician - You may shower ACTIVITY: * Rest as much as possible. * Do not exercise or lift anything heavier than your baby (such as laundry or other children.) * Avoid stairs or driving as much as possible. * Do not put anything into the vagina. No douching, tampons, or sexual activity until seen by physician. NOTIFY PHYSICIAN IF YOU HAVE ANY QUESTIONS OR IF ANY OF THE FOLLOWING SYMPTOMS OCCUR: * If your incision becomes red, swollen, or more painful than what you have experienced in the hospital. * If your vaginal bleeding becomes foul smelling. * If your vaginal bleeding becomes more heavy than a period or if your bleeding changes from pink to bright red. However, you may pass an occasional walnut-sized clot once or twice for the first week . * If you experience a sharp, shooting pain in your calves. * If you discover a hard, reddened area on your breast or if you experience flu-like symptoms.
== END 2020-04-05 15:05 | disposition home or self-care (01) | DRG 788 ==
LOC: ANHOB2 04-05 11:15 → ANHLDR 04-09 10:20 → ANHOB2 04-09 10:20
PROVIDERS: Admitting Provider Student in an Organized Health Care Education/Training Program; PCP Physician Assistant; Visit Provider Obstetrics & Gynecology
PROC: 10D00Z1 Extraction of Products of Conception, Low, Open Approach (ICD-10-PCS; CPT 59514; principal; 2020-04-03 12:00)
DX: O13.4 Gestational [pregnancy-induced] hypertension without significant proteinuria, complicating childbirth (principal); Z3A.37 37 weeks gestation of pregnancy; Z37.0 Single live birth; O32.1XX0 Maternal care for breech presentation, not applicable or unspecified; R60.9 Edema, unspecified; O99.824 Streptococcus B carrier state complicating childbirth; O99.810 Abnormal glucose complicating pregnancy; O43.893 Other placental disorders, third trimester; Z86.19 Personal history of other infectious and parasitic diseases
CPT/HCPCS: 36415; 59412; 80053; 82570; 84156; 84550; 85025; 86592; 86703; 86850; 86900; 86901; 88307; A9270; G0432; J0131; J0690; J1200; J1885; J2274; J2405; J2590; J3010; J3105; J3475; J7120

== ENCOUNTER 2020-04-15 18:19 | Outpatient (CLI) | payer OTHER, SELFPAY ==
[2020-04-15 18:58] LABS: Basophils Percent Auto 0.3 % (0.2-1.2); Eosinophils Absolute Auto 0.1 K/mm3 (0-0.3); Eosinophils Percent Auto 0.8 % (0-4.4); Hematocrit 32.5 % (37.0-47.0); Hemoglobin 10.4 g/dL (12.0-15.0); Immature Granulocyte Absolute 0.02 K/mm3 (0.00-0.031); Immature Granulocyte Percent A 0.3 % (0-0.5); Lymphocytes Absolute Auto 1.74 K/mm3 (0.9-3.2); Lymphocytes Percent Auto 26.5 % (18.3-44.2); Mean Corpuscular Volume 90.5 fl (80-100); Mean Platelet Volume 9.2 fl (7.4-10.4); Monocytes Absolute Auto 0.4 K/mm3 (0.1-0.6); Monocytes Percent Auto 5.6 % (2.6-8.5); Neutrophils Absolute Auto 4.4 K/mm3 (1.3-6.7); Neutrophils Percent Auto 66.5 % (45.5-73.1); Platelet Count Result 407 k/mm3 (150-375); Red Blood Count 3.59 M/mm3 (4.2-5.4); Red Cell Distribution Width 13.3 % (11.5-14.5); White Blood Count 6.6 K/mm3 (4.5-10.0)
[2020-04-15 19:03] LABS: Add Urine Microscopic? YES; Appearance Urine Clear (Clear); Bacteria Urine Trace /hpf; Bilirubin Urine Negative (Negative); Blood Urine 1+ (Negative); Color Urine Straw (Yellow); Glucose Urine UA Negative (Negative); Ketones Urine Negative (Negative); Leukocyte Esterase Ur Negative LEU/UL (NEGATIVE); Mucus Urine Rare /lpf; Nitrate Urine Negative (Negative); Protein Urine Negative (Negative); RBC Urine 0-2 /hpf (0-2); Specific Grav Ur 1.011 (1.001-1.035); Squamous Epithelial Cell Urine Occasional /hpf (Few); Urobilinogen Urine Negative mg/dL (<2.0); WBC Urine 0-3 /hpf (0-3)
[2020-04-15 19:10] LABS: Creatinine Urine 44.1 mg/dL; Total Protein Urine Random 12 mg/dL; Ur Ttl Prot Creatinine Ratio 0.27 mg/mg (0-0.20)
[2020-04-15 19:14] LABS: Alanine Aminotransferase 17 U/L (4-35); Alkaline Phosphatase 72 U/L (38-126); Anion Gap 7 mmol/L (8-16); Aspartate Amino Transferase 22 U/L (14-36); Bilirubin,Total 0.4 mg/dL (0.2-1.3); Blood Urea Nitrogen 16 mg/dL (7-17); Calcium 9.1 mg/dL (8.4-10.2); Carbon Dioxide 28 mmol/L (22-30); Chloride 100 mmol/L (98-107); Estimated Glomerular Filt Rate > 60; Glucose 99 mg/dL (65-105); Potassium 3.9 mmol/L (3.4-5.0); Sodium 135 mmol/L (137-145)
[2020-04-15] MEDS: CEPHALEXIN 500 MG CAPSULE PO (20:01)
== END 2020-04-15 20:15 | disposition home or self-care (01) ==
PROVIDERS: Obstetrics & Gynecology; PCP Physician Assistant; Visit Provider Student in an Organized Health Care Education/Training Program
DX: O13.5 Gestational [pregnancy-induced] hypertension without significant proteinuria, complicating the puerperium (principal)
CPT/HCPCS: 36415; 80053; 81001; 82570; 84156; 84550; 85025; A9270

== ENCOUNTER 2022-04-23 06:36 | Outpatient (CLI) | payer OTHER, BC, SELFPAY | END 2022-04-23 06:37 | disposition home or self-care (01) | LOC: ANHOBOP 06:41 | PROVIDERS: PCP Physician Assistant; Visit Provider Obstetrics & Gynecology | DX: R63.5 Abnormal weight gain (principal); N92.0 Excessive and frequent menstruation with regular cycle | CPT/HCPCS: 36415; 84443 ==

== ENCOUNTER 2022-08-18 15:27 | Outpatient (CLI) | payer OTHER, SELFPAY ==
--- NOTE | ~2022-08-18 | US_ITS ---
EXAMINATION: US pelvic complete w TV DATE: 08/18/2022 16:04 INDICATION: Menorrhagia Comparison:Ultrasound dated 05/26/2016 TECHNIQUE: Multiple transabdominal and endovaginal sonographic images of the pelvis performed. FINDINGS: The uterus measures 8.3 x 4 x 4.2 cm. The endometrial complex measures 7 mm. There is a nab othian cysts. The right ovary measures 3.5 x 2.3 x 2.6 cm and the left ovary measures 3.4 x 2.6 x 2.5 cm. There ar e small follicles in each ovary. Normal doppler signal in both ovaries. There is no free fluid in the pelvis. There are no abnormal masses seen on either side. IMPRESSION: 1. Unremarkable pelvic ultrasound. Reviewed, dictated and finalized at location B.
== END 2022-08-18 15:28 | disposition home or self-care (01) ==
LOC: ANHIMG 15:31
PROVIDERS: PCP Physician Assistant; Visit Provider Obstetrics & Gynecology
DX: N92.0 Excessive and frequent menstruation with regular cycle (principal)
CPT/HCPCS: 76830; 76856

== ENCOUNTER 2023-05-13 13:40 | Outpatient (CLI) | payer OTHER, SELFPAY ==
[2023-05-13 14:36] LABS: Beta HCG Quantitative < 2.39 mIU/ML
== END 2023-05-13 13:41 | disposition home or self-care (01) ==
PROVIDERS: PCP Physician Assistant; Visit Provider Obstetrics & Gynecology
DX: N92.6 Irregular menstruation, unspecified (principal)
CPT/HCPCS: 36415; 84702

== ENCOUNTER 2023-07-28 10:53 | Outpatient (CLI) | payer OTHER, SELFPAY ==
[2023-07-28 11:44] LABS: Basophils Percent Auto 0.2 % (0.2-1.2); Eosinophils Percent Auto 0.4 % (0-4.4); Hematocrit 35.1 % (37.0-47.0); Hemoglobin 11.7 g/dL (12.0-15.0); Immature Granulocyte Absolute 0.01 K/mm3 (0.00-0.031); Immature Granulocyte Percent A 0.2 % (0-0.5); Lymphocytes Absolute Auto 2.18 K/mm3 (0.9-3.2); Lymphocytes Percent Auto 38.4 % (18.3-44.2); Mean Corpuscular HGB Conc 33.3 g/dl (32-36); Mean Corpuscular Hemoglobin 32.5 pg (26-34); Mean Corpuscular Volume 97.5 fl (80-100); Mean Platelet Volume 10.2 fl (7.4-10.4); Monocytes Absolute Auto 0.5 K/mm3 (0.1-0.6); Monocytes Percent Auto 9.5 % (2.6-8.5); Neutrophils Absolute Auto 2.9 K/mm3 (1.3-6.7); Neutrophils Percent Auto 51.3 % (45.5-73.1); Platelet Count Result 236 k/mm3 (150-375); Red Cell Distribution Width 11.9 % (11.5-14.5); White Blood Count 5.7 K/mm3 (4.5-10.0)
[2023-07-28 12:27] LABS: Hepatitis B Surface Antigen Negative (Negative)
[2023-07-28 12:35] LABS: HIV 1/2 Ab P24 Ag Result Negative (Negative)
[2023-07-28 13:16] LABS: Rapid Plasma Reagin Non-Reactive (NonReactive)
== END 2023-07-28 10:54 | disposition home or self-care (01) ==
LOC: ANHOBOP 10:56
PROVIDERS: PCP Physician Assistant; Visit Provider Obstetrics & Gynecology
DX: Z36.89 Encounter for other specified antenatal screening (principal)
CPT/HCPCS: 36415; 85025; 86592; 86703; 86762; 86850; 86900; 86901; 87340; G0432

== ENCOUNTER 2023-08-31 20:47 | Observation (INO) | payer OTHER, SELFPAY ==
[2023-08-31 20:55] VITALS: BP 135/63; PULSE 90
[2023-08-31 21:00] VITALS: TEMP 37.1; BMI 27.6
--- NOTE | 2023-08-31 21:00 | OBADM ---
This patient, Conchita Rodriguez, admitted to the OB room OB Post 115 for observation. Patient/family oriented to hospital policies and general routines including ID bracelet, bed and alarms, visiting hours, pain management, procedures, bathroom and other care routines, personal items, smoking policy, room service/diet, and visiting hours. Patient/Family are encouraged to report perceived risks to care and to ask questions if they do not understand what they are told or what they should do.
[2023-08-31] MEDS: DEXTROSE 5%/LACTATED RINGERS 1,000 ML 999 ML IV CONT (21:28)
[2023-08-31] MEDS: PROMETHAZINE HCL 25 MG/ML AMPUL 12.5 MG IV PUSH (21:29)
[2023-08-31 21:41] VITALS: BP 116/69; PULSE 70; PULSE 72; O2SAT 100
--- NOTE | 2023-09-02 07:44 | PM.OBTRLD ---
OB - Triage/Final Diagnosis Visit Information Date of evaluation: 09/01/23 Reason for evaluation: decreased movement Comments/Additional reasons for admission: I have assessed the risk for this patient, Conchita Rodriguez, and determined that she would benefit from observation care.
== END 2023-08-31 22:44 | disposition home or self-care (01) ==
PROVIDERS: Admitting Provider Obstetrics & Gynecology; PCP Physician Assistant; Visit Provider Obstetrics & Gynecology
DX: O36.8120 Decreased fetal movements, second trimester, not applicable or unspecified (principal); Z3A.14 14 weeks gestation of pregnancy
CPT/HCPCS: 96374; G0378; G0379; J2550; J7121

== ENCOUNTER 2023-10-28 07:28 | Outpatient (CLI) | payer OTHER, SELFPAY ==
--- NOTE | ~2023-10-28 | US_ITS ---
COMPLETE AND LIMITED MATERNAL ULTRASOUND (Doppler ultrasound interrogation techniques used as n eeded for this exam.) Ordering provider: Kevin Simeon MD History: . ANATOMY;PLACENTAL LOCATION . Comparison: None. Findings: : Single intrauterine fetus with heart rate measured at 138 bpm which is within normal limits. Presentation: Vertex. Transverse lie. Head on maternal left. --SCREENING OF ANATOMY: Cerebral ventricles: Normal. Measures 0.9 cm Cerebellum: Normal. Measures 2.3 cm. Cisterna magna: Normal. Measures 0.4 cm. Nuchal fold: Normal Spine: Normal 4 chamber heart: Normal Diaphragm: Normal STOMACH: Not well seen. Kidneys: Normal Bladder: Normal 3 vessel cord: Normal Cord insertion: Normal Amniotic fluid: Largest pocket measures 4 cm. Cervix: Measures 3.6 cm. Placenta: Anterior. Distance from cervix 2.6 cm. -- BIOMETRICS: BPD: 54.8 mm = 22 weeks and 5 days HC: 211.1 mm = 23 weeks and 1 day FL: 40.9 mm = 23 weeks 2 days. AC: 193.3 mm = 24 weeks HC/AC: 1.09 FL/BPD: 74.7 FL/AC: 21.2 Estimated weight is 610.3 g. EFW: 72.4% Mean US age is 23 weeks and 2 days for an PJ on February 22, 2024. . The cervical length is cm which is within normal limits. IMPRESSION: The stomach was not visualized. Otherwise,UNREMARKABLE COMPLETE AND LIMITED MATERNAL US. Reviewed, dictated and finalized at location A. IMPRESSION: The stomach was not visualized. Otherwise,UNREMARKABLE COMPLETE AND LIMIT ED MATERNAL US.
== END 2023-10-28 07:29 | disposition home or self-care (01) ==
PROVIDERS: PCP Physician Assistant; Visit Provider Obstetrics & Gynecology
DX: Z36.9 Encounter for antenatal screening, unspecified (principal)
CPT/HCPCS: 76805

== ENCOUNTER 2023-12-07 12:55 | Outpatient (CLI) | payer OTHER, SELFPAY ==
--- NOTE | ~2023-12-07 | US_ITS ---
EXAMINATION: US OB follow up DATE: 12/07/2023 14:28 INDICATION: Incomplete anatomic survey. TECHNIQUE: Real-time ultrasound of the pelvis was performed. COMPARISON: Ultrasound 10/28/2023 FINDINGS: There is a single living fetus in vertex presentation. The placenta is anterior. heart rate is 148 beats per minute (bpm). The cervical length is 5.5 cm on transabdominal images, which is normal. The amniotic fluid volume is subjectively normal. The deepest vertical pocket is 9.2 cm, which is no rmal. The stomach is normal. The following biometric data were obtained: Biparietal diameter (BPD): 7.3 cm; head circumference (HC): 28.3 cm; abdominal circumference (AC): 26 .1 cm; femur length (FL): 5.6 cm. These measurements are concordant. Estimated weight is 1501 g +/- 225 g, which correlates with the 85th percentile when 02/24/24 i s used as estimated date of delivery. As single measurements, these parameters are each equal to the following estimated gestational ages: BPD: 29 weeks 2 days. HC: 31 weeks 0 days. AC: 30 weeks 2 days. FL: 29 weeks 4 days. estimated gestational age based solely on measurements from this exam is 30 weeks 0 days +/- 2 weeks 1 days. IMPRESSION: 1. Single living fetus in vertex presentation. 2. Estimated weight is 1501 g +/- 225 g, which correlates with the 85th percentile when is used as estimated date of delivery. 3. Normal stomach. Reviewed, dictated and finalized at location A. IMPRESSION: 1. Single living fetus in vertex presentation. 2. Estimated weight is 1501 g +/- 225 g, which correlates with the 85th percentile when 02/24/24 is used as estimated date of delivery. 3. Normal stomach.
== END 2023-12-07 12:56 | disposition home or self-care (01) ==
LOC: ANHIMG 12:59
PROVIDERS: PCP Physician Assistant; Visit Provider Obstetrics & Gynecology
DX: Z36.3 Encounter for antenatal screening for malformations (principal)
CPT/HCPCS: 76816

== ENCOUNTER 2023-12-29 13:58 | Outpatient (CLI) | payer OTHER, SELFPAY ==
[2023-12-29 15:03] LABS: HIV 1 P24 AG Negative (Negative); HIV 1/2 AB Negative (Negative)
== END 2023-12-29 13:59 | disposition home or self-care (01) ==
PROVIDERS: PCP Physician Assistant; Visit Provider Obstetrics & Gynecology
DX: Z36.89 Encounter for other specified antenatal screening (principal)
CPT/HCPCS: 36415; 87806

== ENCOUNTER 2024-01-05 12:19 | Observation (INO) | payer OTHER, SELFPAY ==
--- NOTE | 2024-01-05 12:19 | OBADM ---
This patient, Conchita Rodriguez, admitted to the OB room OB Post 113 for observation. Patient/family oriented to hospital policies and general routines including ID bracelet, bed and alarms, visiting hours, pain management, procedures, bathroom and other care routines, personal items, smoking policy, room service/diet, and visiting hours. Patient/Family are encouraged to report perceived risks to care and to ask questions if they do not understand what they are told or what they should do.
--- NOTE | 2024-01-05 12:45 | PC.NURSE ---
Called Dr. Simeon with pt status. Admitted with complaints of nausea, headache and diarrhea. Orders received.
[2024-01-05 12:59] VITALS: BP 122/66; PULSE 86
[2024-01-05 13:01] VITALS: BP 115/69; PULSE 89
[2024-01-05] MEDS: LACTATED RINGERS 1,000 ML 999 ML IV CONT (13:06)
[2024-01-05] MEDS: ONDANSETRON INJ 4 MG/2 ML VIAL IV PUSH (13:07)
[2024-01-05] MEDS: diphenhydrAMINE HCl INJ 50 MG/ML VIAL 25 MG IV PUSH (13:07)
[2024-01-05 13:10] VITALS: TEMP 36.5
[2024-01-05 13:15] VITALS: BP 121/69; PULSE 79
[2024-01-05 13:19] LABS: Add Urine Microscopic? NO; Appearance Urine Clear (Clear); Bilirubin Urine Negative (Negative); Blood Urine Negative (Negative); Color Urine Yellow (Yellow); Glucose Urine UA Negative (Negative); Ketones Urine Negative (Negative); Leukocyte Esterase Ur Negative LEU/UL (Negative); Nitrate Urine Negative (Negative); Protein Urine Negative (Negative); Specific Grav Ur 1.006 (1.001-1.035); Urobilinogen Urine 0.2 mg/dL (<2.0); pH Urine 7.5 (5.0-9.0)
[2024-01-05 13:34] VITALS: BP 123/68; PULSE 80
[2024-01-05 13:45] VITALS: BMI 35.7
--- NOTE | 2024-01-08 12:00 | PM.OBTRLD ---
OB - Triage/Final Diagnosis Visit Information Comments/Additional reasons for admission: I have assessed the risk for this patient, Conchita Rodriguez, and determined that she would benefit from observation care. Evaluation Laboratory results: Laboratory Tests 01/05/24 12:48 Urine Color Yellow Urine Appearance Clear Urine pH 7.5 Ur Specific Dietrich 1.006 Urine Protein Negative Urine Glucose (UA) Negative Urine Ketones Negative Ur Blood (Man) Negative Urine Nitrate Negative Urine Bilirubin Negative Urine Urobilinogen 0.2 Ur Leukocyte Esterase Negative Final Diagnosis (1) Nausea/vomiting in : Code(s): O21.9 - Vomiting of , unspecified Status: Acute
== END 2024-01-05 14:22 | disposition home or self-care (01) ==
PROVIDERS: Admitting Provider Obstetrics & Gynecology; PCP Physician Assistant; Visit Provider Obstetrics & Gynecology
DX: O21.9 Vomiting of pregnancy, unspecified (principal); Z3A.00 Weeks of gestation of pregnancy not specified
CPT/HCPCS: 81003; 87086; 96374; 96375; G0378; G0379; J1200; J2405; J7120

== ENCOUNTER 2024-01-21 10:47 | Outpatient (RCR) | payer OTHER, SELFPAY ==
[2024-01-21 12:22] VITALS: BP 134/78; PULSE 80
== END 2024-03-09 17:36 | disposition home or self-care (01) ==
LOC: ANHOBOP 10:47
PROVIDERS: PCP Physician Assistant; Visit Provider Obstetrics & Gynecology
DX: O26.893 Other specified pregnancy related conditions, third trimester (principal); R10.9 Unspecified abdominal pain; Z3A.35 35 weeks gestation of pregnancy
CPT/HCPCS: 59025

== ENCOUNTER 2024-02-01 08:50 | Observation (INO) | payer OTHER, SELFPAY ==
--- NOTE | 2024-02-01 09:54 | PC.NURSE ---
Dr Simeon notified of adm c/o contractions and not feeling well, informed of reactive NST and irreg contractions. OK to dc home with labor precautions.
--- NOTE | 2024-02-07 08:09 | PM.OBTRLD ---
OB - Triage/Final Diagnosis Visit Information Comments/Additional reasons for admission: I have assessed the risk for this patient, Conchita Rizzo, and determined that she would benefit from observation care. Final Diagnosis (1) False labor: Code(s): O47.9 - False labor, unspecified Status: Acute
== END 2024-02-01 10:14 | disposition home or self-care (01) ==
PROVIDERS: Admitting Provider Obstetrics & Gynecology; PCP Physician Assistant; Visit Provider Obstetrics & Gynecology
DX: O47.03 False labor before 37 completed weeks of gestation, third trimester (principal); Z3A.36 36 weeks gestation of pregnancy
CPT/HCPCS: G0378; G0379

== ENCOUNTER 2024-02-02 13:37 | Outpatient (CLI) | payer OTHER, SELFPAY ==
--- NOTE | ~2024-02-02 | US_ITS ---
EXAMINATION: US OB follow up DATE: 02/02/2024 15:12 INDICATION: Assess amniotic fluid index and growth during third trimester TECHNIQUE: Real-time ultrasound of the pelvis was performed. The interpreting radiologist was not pre sent for the study. COMPARISON: 12/07/2023 FINDINGS: There is a single living fetus in vertex presentation. The placenta is anterior and not low-lying. N ormal cervical length of 3.9 cm with no funneling. heart rate is 134 beats per minute (bpm). Th e amniotic fluid index is 19.0 cm, which is normal (5th%-95%: 7.7-24.9 cm at 36 weeks estimated gest ational age). The following biometric data were obtained: BPD: 9.3 cm -> 37 weeks 4 days Head circumference: 33.8 cm -> 38 weeks 5 days Abdominal circumference: 37.4 cm -> 41 weeks 2 days Femur length: 7.3 cm -> 37 weeks 3 days The femur length to abdominal circumference ratio 19.6 is below the normal range (20-24). Biometric d terri is otherwise concordant. Head circumference to abdominal circumference ratio: 0.90 (normal range 0.87-1.06). Estimated weight: 3889 g (+/-) 583 g or 8 lbs. 9 oz. (+/-) 1lb. 5 oz. IMPRESSION: 1. Single living fetus in vertex presentation with heart rate of 134 bpm. 2. Normal amniotic fluid index of 19.0 cm. 3. Estimated weight is >97th percentile by Hadlock criteria when 02/24/2024 is used as the stephanie mated date of delivery (PJ). Please correlate with clinical information or earlier ultrasounds for m ost accurate PJ. 4. Femur length to abdominal circumference ratio of 19.6 is below normal range (20-24). Reviewed, dictated and finalized at location A. IMPRESSION: 1. Single living fetus in vertex presentation with heart rate of 134 bpm. 2. Normal amniotic fluid index of 19.0 cm. 3. Estimated weight is >97th percentile by Hadlock criteria when 02/24/20 24 is used as the estimated date of delivery (PJ). Please correlate with clini aleida information or earlier ultrasounds for most accurate PJ. 4. Femur length to abdominal circumference ratio of 19.6 is below normal range (20-24).
== END 2024-02-02 13:38 | disposition home or self-care (01) ==
PROVIDERS: PCP Physician Assistant; Visit Provider Obstetrics & Gynecology
DX: Z36.89 Encounter for other specified antenatal screening (principal); Z3A.00 Weeks of gestation of pregnancy not specified
CPT/HCPCS: 76816

== ENCOUNTER 2024-02-06 16:39 | Observation (INO) | payer OTHER, SELFPAY ==
[2024-02-06 17:00] VITALS: BMI 36.9
[2024-02-06 17:01] VITALS: RESP 18; TEMP 37
[2024-02-06 17:46] VITALS: BP 136/79; PULSE 81
== END 2024-02-06 18:15 | disposition home or self-care (01) ==
PROVIDERS: Admitting Provider Obstetrics & Gynecology; PCP Physician Assistant; Visit Provider Obstetrics & Gynecology
DX: O47.1 False labor at or after 37 completed weeks of gestation (principal); Z3A.37 37 weeks gestation of pregnancy
CPT/HCPCS: G0378; G0379

== ENCOUNTER 2024-02-17 09:24 | Inpatient (IN) | payer OTHER, SELFPAY ==
[2024-02-17] VITALS (45 sets, daily range): BP systolic 110–149; BP diastolic 69–98; PULSE 71–98; RESP 12–20; TEMP 36.1–37.3; O2SAT 98–100; BMI 36.7
--- NOTE | 2024-02-17 09:40 | PM.IMHP ---
H&P: HPI History of Present Illness Date/Time: 02/17/24 09:40 Chief Complaint: Here for c section Narrative: 28 y/o at 39 weeks here for repeat . GBS neg. Review of Systems Review of Systems: All systems reviewed & are unremarkable except as noted in HPI and below PMFSH Surgical History Surgical History (Updated 02/17/24 @ 09:45 by Kevin Simeon MD) History of delivery Family History Family History Mother Uterine cancer History of hysterectomy Grandparent Uterine cancer History of hysterectomy Social History Social History Smoking status: Never smoker Second hand tobacco smoke exposure: No Substance use: never Spiritual care concerns: No Meds Home Medications and Allergies Home Medications Medication Instructions Recorded Confirmed Type polyethylene glycol 3350 17 17 g PO DAILY PRN Constipation 03/21/20 02/06/24 History gram/dose oral powder (Miralax) prenat.vits,aleida,zjv-anat-ymupw 1 tablet PO DAILY 03/21/20 02/06/24 History aspirin 81 mg chewable tablet 81 mg PO DAILY 02/06/24 02/06/24 History Allergies Allergy/AdvReac Type Severity Reaction Status Date / Time No Known Allergies Allergy Verified 01/15/24 13:33 Exam Const: Orientation/consciousness: patient oriented x3 Other: Well-developed, well-nourished female in no acute distress. Neck: Thyroid: thyroid normal Lymphatic: no lymphadenopathy noted (in neck, axilla or inguinal nodes) Resp: Effort & Inspection: normal respiratory effort Auscultation: clear to auscultation bilaterally Cardio: Rate: regular rate Rhythm: regular rhythm Heart sounds: S1 normal heart sound present and S2 normal heart sound present GI: Other: ABD: Soft, nontender, nondistended, gravid. FHR 150 bpm. FH 40 cm. No guarding or rebound tenderness. No hepatosplenomegaly. : General: Yes no CVA tenderness Other: Cervix closed, 50% Back/Spine/Pelvis: Back: no CVA tenderness Skin: General skin exam: normal color and no rashes or lesions noted Neuro: General: patient oriented x3 Extrem: Other: Extremities: nontender with no edema Psych: Mental Status: mental status grossly normal Affect: normal affect Assessment and Plan Assessment and plan (1) Term : Code(s): Z34.90 - Encounter for supervision of normal , unspecified, unspecified trimester Status: Acute Assessment and Plan: A: IUP at 39 weeks with prior , desiring repeat. P: Offered repeat . She understands risks of surgery to include risks of anesthesia, risks of pain, infection, bleeding, blood products, thromboembolic phenomena and damage to adjacent structures such as bowel, bladder, ureters, blood vessels and nerves. She understands all these risks and elects to proceed with surgery.
[2024-02-17] MEDS: ACETAMINOPHEN 500 MG TABLET 1000 MG PO (10:07)
[2024-02-17] MEDS: LACTATED RINGERS 1,000 ML 125 ML IV CONT ×2 (10:15→11:44)
[2024-02-17 11:04] LABS: Rapid Plasma Reagin Non-Reactive (NonReactive)
[2024-02-17 11:07] LABS: HIV 1/2 Ab P24 Ag Result Negative (Negative)
[2024-02-17] MEDS: ONDANSETRON INJ 4 MG/2 ML VIAL IV PUSH (11:51)
[2024-02-17] MEDS: FAMOTIDINE 20 MG/2 ML VIAL IV PUSH (11:51)
--- NOTE | 2024-02-17 11:54 | WPDHPUPDATE1 ---
History and Physical Update Update Date/Time: 02/17/24 11:54 History and Physical has been reviewed, including an updated exam of the patient. There are NO changes in the patient's condition. Risks, benefits, and alternatives have been discussed and questions answered. Patient agrees to proceed with procedure.
--- NOTE | 2024-02-17 11:55 | WPDANESEPPF ---
Anes - Initial Pre Proc Eval Procedure: Operation Date: 02/17/24 12:00 Proposed Procedures p Repeat Section - Kevin Simeon MD Date/Time: 02/17/24 11:55 Surgeon: Kevin Simeon MD Pre Op Diagnosis: Repeat Patient Data Age: 28 Gender: F Height: 1.63 m Weight: 97 kg Last Vital Signs Pulse 91 02/17/24 10:16 BP 125/73 02/17/24 10:16 O2 Del Method Room Air 02/17/24 10:18 Allergies Allergy/AdvReac Type Severity Reaction Status Date / Time No Known Allergies Allergy Verified 01/15/24 13:33 Home Medications Medication Instructions Recorded Confirmed Type polyethylene glycol 3350 17 17 g PO DAILY PRN Constipation 03/21/20 02/06/24 History gram/dose oral powder (Miralax) prenat.vits,aleida,uoh-odah-sxxrs 1 tablet PO DAILY 03/21/20 02/06/24 History aspirin 81 mg chewable tablet 81 mg PO DAILY 02/06/24 02/06/24 History Laboratory Tests 02/17/24 10:01 RPR Non-reactive (NonReactive) HIV 1&2 Ab/P24 Ag 4thGn Negative (Negative) Patient hx anesthesia problems: none Family hx anesthesia problems: none Results Review: All pre-operative results and documents have been reviewed as part of the pre-operative evaluation. [facility] Past Medical History Medical History Obesity affecting Term Surgical History Surgical History History of delivery Family History Family History Mother Uterine cancer History of hysterectomy Grandparent Uterine cancer History of hysterectomy Social History Social History Smoking status: Never smoker Second hand tobacco smoke exposure: No Substance use: never Spiritual care concerns: No Anes - Eval Final PreProcedure Day of Procedure 02/17/24 11:55 Patient weight: obese Heart: regular rate and rhythm Lungs: clear to auscultation Airway: Mallampati scale class 1 Neurological: alert and oriented Last oral intake: >/= 8 hours ASA classification: II Emergent: yes Anesthetic plan: proceed Anesthesia type and monitoring: regional spinal Results Review: All pre-operative results and documents have been reviewed as part of the pre-operative evaluation. Informed Consent: The patient's anesthetic plan and its attendant risks and benefits were discussed with the patient/family/POA. Questions were solicited and answers provided to the satisfaction of the patient/family/POA.
[2024-02-17] MEDS: ceFAZolin 2 GM/D5W 50 ML 2 GM/50 ML BAG IVPB (12:10)
--- NOTE | 2024-02-17 13:14 | W.PM.OBCSD ---
OB - Delivery Note Procedure Delivery date: 02/17/24 Pre-op diagnosis: Previous Delivery Post-op Diagnosis: Same Induction method: None Delivery monitor: External FHT and External Uterine Procedure Performed: Repeat Surgeon: Kevin Simeon MD Anesthesia type: Spinal Description of Procedure/Findings: Findings: Normal-appearing uterus, tubes and ovaries. Techniques: The patient was taken to the operating room where she was prepared and draped in the usual sterile fashion in dorsal supine position with a leftward tilt. She received cefazolin preoperatively. Spinal anesthesia was found to be adequate. A Pfannenstiel skin incision was made along the previous scar line and was carried through to the underlying layer of the fascia. The fascia was incised in the midline and the incision was extended laterally. The fascia was dissected free of the underlying rectus muscles. The rectus muscles were in the midline. The peritoneum was identified, tented up and entered sharply. The peritoneal incision was extended superiorly and inferiorly with good visualization of the bladder. The bladder blade was placed. The vesicouterine peritoneum was identified, tented up and entered sharply. The incision was extended laterally and the bladder flap was developed. The bladder blade was replaced. The uterus was then incised sharply in a transverse fashion along the lower uterine segment. The incision was extended laterally. The 's head was delivered atraumatically to the sterile field, followed by the body. The nose and mouth were bulb suctioned. After a delay, the cord was clamped and cut. The was handed off the field. Cord blood was collected. The placenta was removed manually and was passed off the field. The uterus was exteriorized and cleared of all clots and debris. The uterine incision was reapproximated using 0 Monocryl in a running, locked fashion. Excellent hemostasis resulted as did excellent reapproximation of the normal anatomy. The uterus was returned the abdomen. The pelvis was irrigated copiously with warmed normal saline. Rigorous hemostasis was assured. The fascial layer was reapproximated using 0 Vicryl in a running fashion. The skin was closed with a running, subcuticular stitch of 4 0 Vicryl. Dermaflex was applied externally. Sponge, lap, needle and instrument counts were correct. The patient was taken to the recovery room in stable condition. The infant went to the nursery in stable condition. I was present and scrubbed the entire procedure. Specimen: Yes (cord blood) Estimated Blood Loss: 545 Drains: Yes (Ayala) Packing: No Pathology: Yes (Cord blood) Complications: None Condition: Stable Disposition: PACU [place] Baby Date of : 02/17/24 Time of : 12:39 Gestational Age by Date: 39 gender: Female Weight (pounds): 8 Weight (ounces): 15 presentation: vertex Placenta delivery description: Manual Removal and Normal Configuration Cord Vessel Description: 3 Vessels and Delayed Cord Clamping
--- NOTE | 2024-02-17 13:16 | P.DS_ITS ---
DS: Admitting Diagnosis Discharge Date 02/19/24 Admitting Diagnosis IUP at 39 weeks Prior , desires repeat DS: Discharge Diagnosis Discharge Diagnosis (1) delivery delivered: Code(s): O82 - Encounter for delivery without indication Status: Acute OB - DS: Summary OB Procedures : None OB Procedures Intrapartum: OB Procedures: : None Peripartum Data Procedures: Procedures Operation Date: 02/17/24 12:00 <No data on this case meets the specified criteria> Time Spent with Patient Time attestation: Total time spent providing and/or coordinating discharge services: DS: Data Data Completed and Pending Labs on day of discharge: Labs from last 24 hours 02/17/24 10:01 RPR Non-reactive HIV 1&2 Ab/P24 Ag 4thGn Negative Discharge Plan Discharge Attending physician on discharge: Kevin Simeon Discharging Clinician: Kevin Simeon Patient Disposition: Home, Self-Care Activity: may shower, may drive after 2 weeks and pelvic rest Diet: regular Wound Care Instructions: incision open to air Discharge Instructions: Call or return if temperature above 100.4? F, increased abdominal pain, increased vaginal bleeding or any new problems. Education: Mom and Baby Guide Given to: Mother Follow-Up: Call your delivering provider's office for an appointment to be seen in: 4 Weeks Mom and baby should come to the [facility] for the follow-up appointment. Appointment Date/Time: February 20, 2024 at 10:00 am What to expect at your follow-up visit: Blood Pressure Check Physical Assessment Call [phone] if you are unable to keep your appointment time. BREAST CARE: * Wear a snug supportive bra. * For engorgement discomfort: Breast Feeding: * Apply warm moist washcloths * Express milk as needed to relieve engorgement * Wear loose clothing Bottle Feeding: * May apply ice packs * For sore nipples: * Identify correct latch-on * Apply warm moist washcloths before and after nursing * Air dry nipples after nursing * May apply Lansinoh cream to nipples ABDOMINAL INCISION: * Allow incision to air dry * Do NOT use lotions for powders on your incision * When showering, allow soap and water to run over the incision, but do not wash incision EPISIOTOMY/PERINEAL CARE: * Until bleeding stops, use your capo bottle after urinating * Change your pad frequently throughout the day * You may take sitz baths several times a day (fill your bathtub with warm water and soak for 20 minutes.) Do NOT bathe in the water * No tub baths until seen by your physician - You may shower ACTIVITY: * Rest as much as possible. * Do not exercise or lift anything heavier than your baby (such as laundry or other children.) * Avoid stairs or driving as much as possible. * Do not put anything into the vagina. No douching, tampons, or sexual activity until seen by physician. NOTIFY PHYSICIAN IF YOU HAVE ANY QUESTIONS OR IF ANY OF THE FOLLOWING SYMPTOMS OCCUR: * If your episiotomy or incision becomes red, swollen, or more painful than what you have experienced in the hospital. * If your vaginal bleeding becomes foul smelling. * If your vaginal bleeding becomes more heavy than a period or if your bleeding changes from pink to bright red. However, you may pass an occasional walnut- sized clot once or twice for the first week . * If you experience a sharp, shooting pain in you calves. * If you discover a hard, reddened area on your breast or if you experience flu- like symptoms. DIET: * Eat regular, well-balanced meals. * Drink plenty of fluids daily. If , drink to thirst. Stand Alone Forms: General Discharge Information Follow-up/Referrals: Kevin Simeon MD [Physician] - 4 Weeks Discharge Medications: New ibuprofen 600 mg tablet 600 mg PO Q6H PRN (Reason: cramps) Qty: 30 0RF hydrocodone-acetaminophen 5-325 mg tablet 1 - 2 tablet PO Q6H PRN (Reason: pain) Qty: 30 0RF ferrous sulfate 325 mg (65 mg iron) tablet 325 mg PO DAILY Qty: 30 0RF Continued polyethylene glycol 3350 [Miralax] 17 gram/dose Powder 17 g PO DAILY PRN (Reason: Constipation) prenat.vits,aleida,zza-hlig-wadmn Tablet 1 tablet PO DAILY Discontinued aspirin 81 mg Tablet,Chewable 81 mg PO DAILY Date of admission: 02/17/24 09:24 Primary Care Provider: [facility] Admitting Provider: Kevin Simeon Attending physician on admission: Kevin Simeon Condition: Stable
[2024-02-17] MEDS: OXYTOCIN 30 UNITS/NS 500 ML 30 UNITS/500 ML BAG 125 UNITS IV CONT (14:39)
[2024-02-17] MEDS: LIDOCAINE 5% PATCH 1 PATCH (15:05)
[2024-02-17] MEDS: ACETAMINOPHEN 325 MG TABLET 650 MG PO ×2 (16:29→23:18)
[2024-02-17] MEDS: KETOROLAC 15 MG/ML VIAL (*BKC) IV PUSH ×2 (16:30→23:18)
[2024-02-17] MEDS: SIMETHICONE 80 MG TAB.CHEW PO (16:32)
[2024-02-17] MEDS: DOCUSATE SODIUM 100 MG CAPSULE PO (16:32)
--- NOTE | 2024-02-17 17:14 | OBPPTRN ---
Patient transferred to post room #277 via (stretcher ). Support person present. Oriented to unit, room, information board, rooming in, admission packet and security measures. Patient verbalizes understanding.
[2024-02-17] MEDS: HYDROcodone/acetaminophen (*CRX) 10-325 MG TABLET 1 TAB PO (17:31)
--- NOTE | 2024-02-17 19:00 | PC.NURSE ---
PT introductions made and plan of care discussed per post op c section, daily care activities, pain management, breast bottle feeding. PT and spouse both recipients of such instructions and no barriers to learning identified at this time. Instructions per one to one discussion, mom baby care guide and demonstrations. PT verbalized understanding of such care.
[2024-02-17] MEDS: DEXTROSE 5%/0.45% SOD CHL 1,000 ML 125 ML IV CONT (19:24)
[2024-02-17] MEDS: HYDROcodone/acetaminophen (*CRX) 5-325 MG TABLET 1 TAB PO (21:05)
[2024-02-18 00:59] VITALS: BP 151/90; PULSE 103; RESP 18; TEMP 37.7; O2SAT 99
[2024-02-18] MEDS: HYDROcodone/acetaminophen (*CRX) 10-325 MG TABLET 1 TAB PO ×3 (03:48→23:37)
[2024-02-18 05:10] LABS: Basophils Percent Auto 0.1 % (0.2-1.2); Eosinophils Percent Auto 0.1 % (0-4.4); Hematocrit 24.3 % (37.0-47.0); Hemoglobin 7.5 g/dL (12.0-15.0); Immature Granulocyte Absolute 0.04 K/mm3 (0.00-0.031); Immature Granulocyte Percent A 0.6 % (0-0.5); Lymphocytes Absolute Auto 1.48 K/mm3 (0.9-3.2); Lymphocytes Percent Auto 20.8 % (18.3-44.2); Mean Corpuscular HGB Conc 30.9 g/dl (32-36); Mean Corpuscular Volume 87.4 fl (80-100); Mean Platelet Volume 11.1 fl (7.4-10.4); Monocytes Absolute Auto 0.7 K/mm3 (0.1-0.6); Monocytes Percent Auto 9.6 % (2.6-8.5); Neutrophils Absolute Auto 4.9 K/mm3 (1.3-6.7); Neutrophils Percent Auto 68.8 % (45.5-73.1); Platelet Count Result 136 k/mm3 (150-375); Red Blood Count 2.78 M/mm3 (4.2-5.4); Red Cell Distribution Width 15.1 % (11.5-14.5); White Blood Count 7.1 K/mm3 (4.5-10.0)
[2024-02-18] MEDS: ACETAMINOPHEN 325 MG TABLET 650 MG PO ×3 (05:30→18:04)
[2024-02-18] MEDS: KETOROLAC 15 MG/ML VIAL (*BKC) IV PUSH (05:33)
[2024-02-18 07:45] VITALS: BP 140/86; PULSE 104; RESP 16; TEMP 36.9; O2SAT 97
[2024-02-18] MEDS: MULTIVIT/MIN/PREN/FOL AC/IRON TABLET 1 TAB PO (07:56)
[2024-02-18] MEDS: POLYSACCHARIDE IRON COMPLEX 150 MG CAPSULE PO ×2 (07:56→16:26)
[2024-02-18] MEDS: SIMETHICONE 80 MG TAB.CHEW PO ×3 (07:56→16:26)
[2024-02-18] MEDS: DOCUSATE SODIUM 100 MG CAPSULE PO ×2 (07:56→16:27)
--- NOTE | 2024-02-18 08:41 | PM.OBPNVD ---
OB - PN: Subj Subjective Date/time seen: 02/18/24 08:41 Narrative: Pain OK. Tolerating diet. No headache or visual field change. OB - PN: Obj Data Labs 02/18/24 04:36 Labs: Laboratory Results - last 24 hr 02/17/24 02/18/24 10:01 04:36 WBC 7.1 RBC 2.78 L Hgb 7.5 L D Hct 24.3 L MCV 87.4 MCH 27.0 MCHC 30.9 L RDW 15.1 H Plt Count 136 L MPV 11.1 H Immature Gran % (Auto) 0.6 H Neut % (Auto) 68.8 Lymph % (Auto) 20.8 [place] % (Auto) 9.6 H Eos % (Auto) 0.1 Baso % (Auto) 0.1 L Lymph # (Auto) 1.48 [place] # (Auto) 0.7 H Eos # (Auto) 0.0 Baso # (Auto) 0.0 Abs Immat Gran (auto) 0.04 H Absolute Neuts (auto) 4.9 Absolute Nucleated RBC 0.000 Nucleated RBC % 0.0 RPR Non-reactive HIV 1&2 Ab/P24 Ag 4thGn Negative OB - PN A/P Plan Comments: A: POD#1, doing well. Mildly elevated bp. P: Watch bp closely today. Routine care. Exam Narrative: AVSS I/O OK ABD soft, nontender, fundus firm. Incision c/d/i. EXT nontender
--- NOTE | 2024-02-18 09:51 | PC.NURSE ---
0710 Introductions were made, then consulted with patient to assess needs related to . Discussed with mother her?plans to feed?her infant and the?experience so far. Mother had only fed baby bottles since because she was tired but wishes to put baby to breast for the next feeding. Mother had brought her own pump if she needs it but forgot the rail car maintenance mechanic. This RN will get mother a hospital pump to use while she is here if needed. Instructions given on cleaning, care, usage, that there should be no pain, pumping schedule for milk production, collection, and storage of human milk. Patient was assessed for correct placement, flange size (both nipples measured 20mm, could size 24 flange, possibly 27), to pump for comfort and nipple stretching/stimulation for adequate milk production. Parents are encouraged to record the pumping schedule on the feeding sheet if done.?Mother voiced understanding of the education shared along with mom/baby guide and the pump measurement, flange fit handout for additional resource information. Reported to the Primary RN. 0852 Discussed with mother her successes, concerns and any questions she has. We reviewed working with the infant, supporting breast, protecting her nipples with an optimal deep latch, good positioning, and good hand washing. Encouraged understanding the benefits of skin to skin, responding to feeding cues, frequencies of feeding 8-12 times in 24 hours (approximately 2-3 hours), duration of feedings, milk production, intake/output feeding sheet and signs of adequate intake encouraging swallowing at the breast. Reviewed positioning and alignment, supporting breast, off-centered (asymmetrical latch) and leading with the chin with big, open, wide gape. latched optimally to the [left] breast in [football] position. Education given to the mother of how to visualize the suckling (with good rocking jaw motion) swallows (dropping of the lower jaw) and how to listen for drinking at the breast (the ka sound). The infant was [able] to maintain latch without discomfort to mother. Nipple care reviewed with optimal latch, good positioning and using clean hands when touching her breast. Resources used to facilitate learning were used from the [visual handouts/ tool/mom and baby guide]. Mother voiced understanding of the education shared, to call for assistance if the infant does not latch or if there is discomfort with . Reported to the Primary RN.
--- NOTE | 2024-02-18 10:25 | WPDANLDPN2 ---
Anes-Prog Note L&D Date/Time: 02/18/24 10:25 Comfortable throughout: section Neuraxial method: spinal Epidural/Spinal procedure site: clean & non-tender Neuro status: Neuro function grossly intact. Cardiovascular status: normal Respiratory status: normal Airway patency: baseline Mental status: baseline Post-Op hydration status: normal Vital Signs: Last Vital Signs Temp 36.9 C 02/18/24 07:45 Pulse 104 H 02/18/24 07:45 Resp 16 02/18/24 07:45 BP 140/86 02/18/24 07:45 Pulse Ox 97 02/18/24 07:45 O2 Del Method Room Air 02/17/24 19:05 Pain score (VAS): 2/10 I/O: Intake & Output 02/17/24 02/18/24 02/18/24 23:59 07:59 15:59 Intake Total 1940 900 Output Total 600 1300 Balance 1340 -400 Post-procedural complaints: none Patient feedback: Patient satisfied with anesthetic care.
--- NOTE | 2024-02-18 10:25 | WPDANLDNPN2 ---
Anes-Prog Note L&D-Neuraxial Date/Time: 02/18/24 10:25 Neuraxial medications: intrathecal PF morphine Opiod-related complaints: none Patient feedback: Patient satisfied with post-operative pain management.
[2024-02-18] MEDS: IBUPROFEN 600 MG TABLET PO ×2 (11:42→18:04)
[2024-02-18 12:49] VITALS: BP 155/81; PULSE 115; RESP 16; TEMP 37.6; O2SAT 100
[2024-02-18] MEDS: HYDROcodone/acetaminophen (*CRX) 5-325 MG TABLET 1 TAB PO ×2 (15:10→16:27)
[2024-02-18 16:00] VITALS: BP 143/84; PULSE 90; TEMP 37.1
[2024-02-18 20:15] VITALS: BP 126/71; PULSE 97; RESP 18; TEMP 37.3; O2SAT 98
[2024-02-18] MEDS: LIDOCAINE 5% PATCH 1 PATCH TRANSDERM (20:15)
[2024-02-19] MEDS: ACETAMINOPHEN 325 MG TABLET 650 MG PO ×2 (00:15→06:33)
[2024-02-19] MEDS: IBUPROFEN 600 MG TABLET PO ×2 (00:15→06:33)
[2024-02-19] MEDS: HYDROcodone/acetaminophen (*CRX) 10-325 MG TABLET 1 TAB PO ×2 (05:00→11:00)
--- NOTE | 2024-02-19 07:07 | PM.OBPNVD ---
OB - PN: Subj Subjective Date/time seen: 02/19/24 07:07 Patient comments: no complaints and pain well controlled baby status: doing well and nursing well OB - PN: Obj Data Labs 02/18/24 04:36 OB - PN A/P Plan day: 2 Plan: routine care, discharge home and follow up 6 weeks (4) Time Spent With Patient Time: Total time spent is greater than 50% in coordination of care (as documented) at patient's floor/unit and/or counseling patient: Time with patient: less than 15 minutes Exam Const: General: cooperative, healthy appearing and comfortable Orientation/consciousness: oriented to person, oriented to place and oriented to time HENMT: Head: normal to inspection Resp: Effort & Inspection: normal respiratory effort GI: Inspection: normal to inspection and incision (cdi)
[2024-02-19] MEDS: DOCUSATE SODIUM 100 MG CAPSULE PO (08:40)
[2024-02-19] MEDS: POLYSACCHARIDE IRON COMPLEX 150 MG CAPSULE PO (08:40)
[2024-02-19] MEDS: MULTIVIT/MIN/PREN/FOL AC/IRON TABLET 1 TAB PO (08:41)
[2024-02-19] MEDS: SIMETHICONE 80 MG TAB.CHEW PO (08:41)
[2024-02-19 08:45] VITALS: BP 139/87; PULSE 98; RESP 16; TEMP 36.3; O2SAT 99
[2024-02-20 10:48] VITALS: BP 130/77; PULSE 94; RESP 18; TEMP 36.6; O2SAT 99
== END 2024-02-19 11:02 | disposition home or self-care (01) | DRG 788 ==
LOC: ANHLDR 13:18 → ANHOB2 02-19 08:59 → ANHLDR 02-22 08:54 → ANHOB2 02-22 08:54
PROVIDERS: Admitting Provider Obstetrics & Gynecology; PCP Physician Assistant; Visit Provider Obstetrics & Gynecology
PROC: 10D00Z1 Extraction of Products of Conception, Low, Open Approach (ICD-10-PCS; CPT 59514; principal; 2024-02-17 12:00)
DX: O34.219 Maternal care for unspecified type scar from previous cesarean delivery (principal); Z3A.39 39 weeks gestation of pregnancy; Z37.0 Single live birth
CPT/HCPCS: 36415; 85025; 86592; 86703; A9270; G0432; J0690; J1200; J1885; J2274; J2371; J2405; J2590; J7120

== ENCOUNTER 2024-04-10 07:13 | Emergency (ER) | payer OTHER, SELFPAY ==
[2024-04-10] VITALS (21 sets, daily range): BP systolic 103–132; BP diastolic 78–90; PULSE 63–88; RESP 15–18; TEMP 36.2–36.8; O2SAT 96–100
--- NOTE | ~2024-04-10 | CT_ITS ---
EXAMINATION: CT abdomen pelvis w con DATE: 04/10/2024 08:41 INDICATION: One week of right flank pain TECHNIQUE: Computed tomography (CT) of the abdomen and pelvis was performed with 100 mL Omnipaque-350 intravenous contrast. Automated exposure control and iterative reconstruction technique were employe d. The dose-length product was 477.75 mGy-cm. COMPARISON: None FINDINGS: Lung bases are clear. Heart size normal. No pericardial or pleural effusion. Liver, gallbladder, sple en, pancreas, bilateral adrenal glands and kidneys are normal. 4 mm stone at the right ureterovesicul ar junction. No hydronephrosis. There is however urothelial thickening along the proximal right urete r with some mild surrounding inflammatory stranding suspicious for ascending urinary tract infection. No other urolithiasis. Bowels including the appendix are normal. Bladder is normal. There is a kimberly aleta section scar along the anterior segment of the otherwise normal anteverted uterus. 1.6 cm left ov chasity follicle. Trace amount of likely physiologic free fluid in the cul-de-sac. No abscess or free i ntraperitoneal gas. No pathologically enlarged abdominal or pelvic lymphadenopathy. Mild lumbar levoc urvature and mild thoracolumbar spondylosis. Likely physiologic mild anterior wedging at T12. IMPRESSION: 1. 4 mm stone at the right ureterovesicular junction with suggestion of secondary right-sided ascendi ng urinary tract infection. Correlate with urinalysis. Reviewed, dictated and finalized at location A. E ABATEMENT ENGINEER IMPRESSION: 1. 4 mm stone at the right ureterovesicular junction with suggestion of seconda ry right-sided ascending urinary tract infection. Correlate with urinalysis.
--- NOTE | 2024-04-10 07:22 | ED.ABDPAIN ---
HPI - Abdominal Pain General Chief Complaint: Urogenital-Female Stated Complaint: Abd Pain Time Seen by Provider: 04/10/24 07:21 Source: patient History of Present Illness HPI narrative: Intermittent right abdominal pain, sharp shooting pain radiating to the right flank started 1 week ago, getting worse associated with nausea. Patient denies any fever or chills diarrhea constipation vaginal bleeding or discharge. Status post vaginal delivery 7 weeks ago, history of kidney stone. Related Data Home Medications ?Medication ?Instructions ?Recorded ?Confirmed ?Last Taken ?Type polyethylene glycol 3350 17 17 g PO DAILY PRN Constipation 03/21/20 04/10/24 02/04/24 History gram/dose oral powder (Miralax) Allergies Allergy/AdvReac Type Severity Reaction Status Date / Time No Known Allergies Allergy Verified 04/10/24 07:18 Review of Systems Review of Systems: All systems reviewed & are unremarkable except as noted in HPI and below PMFSH Past Medical History Medical History Obesity affecting Term Surgical History Surgical History History of delivery Family History Family History Mother Uterine cancer History of hysterectomy Grandparent Uterine cancer History of hysterectomy Social History Social History Smoking status: Never smoker Second hand tobacco smoke exposure: No Substance use: never Spiritual care concerns: No Exam Narrative: General appearance: Well-developed, well-nourished Skin: Normal color Head: Normocephalic, nontraumatic Eyes: Clear conjunctiva ENT: Oropharynx normal, ears normal, nose normal Neck: Supple, nontender Chest and respiratory: Airway patent, no respiratory distress, no accessory muscle use Heart: Regular rate/rhythm Abdomen: Soft, Right lower quadrant tenderness no organomegaly, quiet bowel sounds Vascular: Normal peripheral pulses, normal capillary refill. 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 DEVELOPER is normal as tested, no gross motor deficit Course Vital Signs Vital signs: Vital Signs Temperature 36.8 C 04/10/24 07:13 Pulse Rate 75 04/10/24 07:13 Respiratory Rate 18 04/10/24 07:13 Blood Pressure 127/90 04/10/24 07:13 Pulse Oximetry 98 04/10/24 07:13 Oxygen Delivery Room Air 04/10/24 07:13 Temperature 36.8 C 04/10/24 07:13 Pulse Rate 72 04/10/24 08:15 Respiratory Rate 16 04/10/24 08:15 Blood Pressure 132/81 04/10/24 08:16 Pulse Oximetry 100 04/10/24 08:16 Oxygen Delivery Room Air 04/10/24 07:13 MDM - Abdominal Pain MDM Narrative Medical decision making narrative: patient presents with right abdominal pain for 1 week Vital signs are stable Physical examination consistent with mild tenderness right lower quadrant no guarding or rebound Differential diagnosis include urinary tract infection, kidney stone, constipation, appendicitis, ovarian cyst Blood workup today includes CBC, CMP, lipase showed no acute abnormalities Urinalysis showed no signs of infection CT abdomen and pelvis with IV contrast showed 4 mm stone right ureteral Physical junction. Patient received 1 L of normal saline, 4 mg of morphine, 4 mg of Zofran with significant improvement. Currently is pain free, Flomax p.o., Toradol 30 mg IV given prior to discharge Discharged on Toradol and Zofran. Patient is breast-feeding at this time. The pt was discharged to home.the pt,s condition upon discharge was fair,education was provided to the pt in reference to the final impression,discharge study results,treatment,prognosis and need for follow up . Lab Data 04/10/24 07:48 04/10/24 07:48 Labs: Lab Results 04/10/24 04/10/24 Range/Units 07:22 07:48 WBC 4.6 L (4.8-10.8) K/mm3 RBC 3.82 L (4.20-5.40) M/mm3 Hgb 10.8 L (12.0-15.0) g/dL Hct 32.7 L (35.0-49.0) % MCV 85.6 (78.0-102.0) fL MCH 28.3 (27.0-31.0) pg MCHC 33.0 (32-36) g/dL RDW 16.5 H (11.6-14.4) % Plt Count 213 (150-420) K/mm3 MPV 9.5 (9.2-11.8) fl Immature Gran % (Auto) 0.2 H (0.0-0.0) % Neut % (Auto) 49.8 L (50.0-70.0) % Lymph % (Auto) 40.9 (18.0-42.0) % [place] % (Auto) 7.4 (2.0-11.0) % Eos % (Auto) 1.3 (1.0-6.0) % Baso % (Auto) 0.4 (0.0-1.0) % Lymph # (Auto) 1.87 (1.10-4.50) K/mm3 [place] # (Auto) 0.34 (0.10-0.90) K/mm3 Eos # (Auto) 0.06 (0.02-0.50) K/mm3 Baso # (Auto) 0.02 (0.00-0.10) K/mm3 Abs Immat Gran (auto) 0.01 H (0.00-0.00) K/mm3 Absolute Neuts (auto) 2.27 (1.70-7.20) K/mm3 Absolute Nucleated RBC 0.00 (0.00-0.00) K/mm3 Nucleated RBC % 0.0 (0-0.0) % Sodium 141 (136-145) mmol/L Potassium 4.0 (3.5-5.1) mmol/L Chloride 106 (98-108) mmol/L Carbon Dioxide 25 (21-32) mmol/L Anion Gap 10 (4-12) mmol/L BUN 14 (7-18) mg/dL Creatinine 0.79 (0.55-1.02) mg/dL Estim Creat Clear Calc Not Reportable Estimated GFR > 60 (59 - ) Glucose 94 (70-99) mg/dL Calculated Osmolality 292 (285-295) mOsm/kg Calcium 8.7 (8.5-10.1) mg/dL Total Bilirubin 0.5 (0.00-1.00) mg/dL AST 20 (15-37) U/L ALT 40 (14-59) U/L Alkaline Phosphatase 67 (46-116) U/L Total Protein 7.2 (6.4-8.2) g/dL Albumin 3.9 (3.4-5.0) g/dL Lipase 22 (16-77) U/L Serum HCG, Qual Negative Urine Color Light yellow (Yellow) Urine Appearance Sl cloudy A (Clear) Urine pH 6.0 (5.0-8.0) Ur Specific [place] >= 1.030 H (1.010-1.020) Urine Protein Negative (Negative) Urine Glucose (UA) Negative (Negative) Urine Ketones Negative (Negative) Ur Blood (Man) 2+ H (Negative) Urine Nitrate Negative (Negative) Urine Bilirubin Negative (Negative) Urine Urobilinogen 0.2 (0.2-1.0) mg/dL Leukocyte Esterase Rfl Negative (Negative) STEVEN/UL Urine RBC 11-20 H (0-2) /hpf Ur Squamous Epith Cells Many H (Few) /hpf Urine Bacteria 1+ H (None) /hpf Urine Mucus Heavy H /lpf Imaging Data Radiologist's impression: ITS Impressions Abdomen/Pelvis CT 04/10/24 08:41 IMPRESSION: 1. 4 mm stone at the right ureterovesicular junction with suggestion of secondary right-sided ascending urinary tract infection. Correlate with urinalysis. Critical Care Time Critical Care Time Critical Care Time: No Discharge Plan Discharge Clinical Impression: Kidney stone Patient Disposition: Home, Self-Care Condition: Improved Instructions: Kidney Stones (ED), How to Strain Your Urine (ED) Additional Instructions: Return if symptoms are worsening , call dr argueta for appointment, take Tylenol as as needed for aches and pain, encourage fluid intake continue home medications. Patient Language: Barbadian Prescriptions: New ondansetron 4 mg tablet,disintegrating 4 mg PO Q4H 0 Days Qty: 10 0RF Rx Instructions: give 1st dose 30min before emetogenic chemo ketorolac 10 mg tablet 10 mg PO Q6H PRN (Reason: pain) 5 Days Qty: 20 0RF No Action polyethylene glycol 3350 [Miralax] 17 gram/dose Powder 17 g PO DAILY PRN (Reason: Constipation) Follow-up/Referrals: Derick Argueta MD [Physician] - 04/11/24 Link,JAXON Austin [Primary Care Provider] -
[2024-04-10 07:31] LABS: Add Urine Microscopic? YES; Bilirubin Urine Negative (Negative); Blood Urine 2+ (Negative); Color Urine Light Yellow (Yellow); Glucose Urine UA Negative (Negative); Ketones Urine Negative (Negative); Leukocyte Esterase Ur Negative LEU/UL (Negative); Nitrate Urine Negative (Negative); Protein Urine Negative (Negative); Specific Grav Ur >= 1.030 (1.010-1.020); Urobilinogen Urine 0.2 mg/dL (0.2-1.0)
[2024-04-10 07:39] LABS: Appearance Urine Sl Cloudy (Clear); Squamous Epithelial Cell Urine Many /hpf (Few)
[2024-04-10 07:40] LABS: Bacteria Urine 1+ /hpf; Mucus Urine Heavy /lpf
[2024-04-10] MEDS: SODIUM CHLORIDE 0.9% IV 1,000 ML 999 ML IV CONT (07:41)
[2024-04-10] MEDS: ONDANSETRON INJ 4 MG/2 ML VIAL IV PUSH (07:42)
[2024-04-10] MEDS: MORPHINE SULFATE (*CRX) 4 MG/ML INJ IV PUSH (07:42)
[2024-04-10 07:59] LABS: Basophils Absolute Auto 0.02 K/mm3 (0.00-0.10); Basophils Percent Auto 0.4 % (0.0-1.0); Eosinophils Absolute Auto 0.06 K/mm3 (0.02-0.50); Eosinophils Percent Auto 1.3 % (1.0-6.0); Hematocrit 32.7 % (35.0-49.0); Hemoglobin 10.8 g/dL (12.0-15.0); Immature Granulocyte Absolute 0.01 K/mm3 (0.00-0.00); Immature Granulocyte Percent A 0.2 % (0.0-0.0); Lymphocytes Absolute Auto 1.87 K/mm3 (1.10-4.50); Lymphocytes Percent Auto 40.9 % (18.0-42.0); Mean Corpuscular Hemoglobin 28.3 pg (27.0-31.0); Mean Corpuscular Volume 85.6 fL (78.0-102.0); Mean Platelet Volume 9.5 fl (9.2-11.8); Monocytes Absolute Auto 0.34 K/mm3 (0.10-0.90); Monocytes Percent Auto 7.4 % (2.0-11.0); Neutrophils Absolute Auto 2.27 K/mm3 (1.70-7.20); Neutrophils Percent Auto 49.8 % (50.0-70.0); Platelet Count Result 213 K/mm3 (150-420); Red Blood Count 3.82 M/mm3 (4.20-5.40); Red Cell Distribution Width 16.5 % (11.6-14.4); White Blood Count 4.6 K/mm3 (4.8-10.8)
[2024-04-10 08:06] LABS: SPREG INTERNAL CONTROL Positive; Serum Qual hCG Negative
[2024-04-10 08:09] LABS: Alanine Aminotransferase 40 U/L (14-59); Albumin Level 3.9 g/dL (3.4-5.0); Alkaline Phosphatase 67 U/L (46-116); Anion Gap 10 mmol/L (4-12); Aspartate Amino Transferase 20 U/L (15-37); Bilirubin,Total 0.5 mg/dL (0.00-1.00); Blood Urea Nitrogen 14 mg/dL (7-18); Calcium 8.7 mg/dL (8.5-10.1); Carbon Dioxide 25 mmol/L (21-32); Chloride 106 mmol/L (98-108); Estimated Glomerular Filt Rate > 60; Glucose 94 mg/dL (70-99); Lipase 22 U/L (16-77); Osmolality Calculated 292 mOsm/kg (285-295); Sodium 141 mmol/L (136-145); Total Protein 7.2 g/dL (6.4-8.2)
[2024-04-10] MEDS: KETOROLAC 30 MG/ML VIAL (*BKC) IV PUSH (08:59)
[2024-04-10] MEDS: TAMSULOSIN HCL 0.4 MG CAPSULE PO (09:00)
--- OUTSIDE RECORDS SUMMARY | 2024-04-17 03:45 | XMS_ITS | Data Portability ---
Author Organization [facility] Shannon [facility] Address [address] [place] [address] Care Team Providers Care Supply Chain Vice President Name Role Phone OLEG MAZA Primary Care Provider MI SUAREZ Machine Edge Bander Unavailable Assessment No assessment recorded. Plan of Treatment Reminders Order Date Submit Date Provider Last Modified By Organization Details Last Modified Time Details Appointments None recorded. Lab pap, IG + reflex HR HPV (16+18) 2018 019 [facility], [address] [place] [address], [address], [address], 9 11:16:08 HBsAg (hepatitis B surface Ag), EIA, serum 2018 019 [facility], [address] [place] [address], [place], [address], 9 16:14:16 HIV 1+2 AB + HIV 1 p24 Ag, qualitativ e immunoassa y, serum 2018 019 [facility], [address] [place] [address] 2, [place], [address], 9 16:14:14 hsv (1+2) igg Ab, serum 2018 019 [employer] [facility], [address] [place] [address], [facility] 2, [place], [address], 9 16:14:13 herpes simplex virus (1+2) Ab, IgM, QN, IA, serum 2018 019 [facility], [address], [place], [address], 9 16:14:15 hepatitis C Ab, signal-to- cutoff, serum or plasma 2018 019 [facility], [address], [place], [address], 9 16:14:15 RPR (rapid plasma reagin), serum 2018 019 [facility], [address], [place], [address], 9 16:14:13 bacterial vaginosis + vaginitis panel, vaginal 2018 019 [facility], [address], [place], [address], 9 07:11:22 hsv (1+2) igg Ab, serum 2018 019 [facility], [address], [place], [address], 9 16:10:41 herpes simplex virus (1+2) Ab, IgM, QN, IA, serum 2018 019 [facility], [address], [place], [address], 9 16:10:43 HIV 1+2 AB + HIV 1 p24 Ag, qualitativ e immunoassa y, serum 2018 019 [facility], [address], [place], [address], 9 16:10:42 HBsAg (hepatitis B surface Ag), EIA, serum 2018 019 [facility], [address], [place], [address], 9 16:10:44 hepatitis C Ab, signal-to- cutoff, serum or plasma 2018 019 [facility], [address], [place], [address], 9 16:10:43 RPR (rapid plasma reagin), serum 2018 019 [facility], [address], [place], [address], 9 16:10:42 urinalysis , dipstick 2018 019 [facility] In-Office Order, Internal Use Only DO Not Attach Compendium DO Not Attach Compendium, Do Not Delete/merge, [id number] 9 16:15:45 test, urine 2018 019 [facility] In-Office Order, Internal Use Only DO Not Attach Compendium DO Not Attach Compendium, Do Not Delete/merge, [id number] 9 16:15:45 CMP, serum or plasma 2020 021 [facility], [address], [place], [address], 1 11:27:54 CBC 2020 021 [facility], [address], [place], [address], 1 11:27:55 lipid panel, serum 2020 021 [facility], [address], [place], [address], 1 11:27:56 TSH + free T4, serum 2020 021 [facility], [address], [place], [address], 11:27:53 Referral None recorded. Procedures None recorded. Surgeries None recorded. Imaging None recorded. Medication Orders Loryna (28) 3 mg-0.02 mg tablet 2018 019 [email or web address] [place], [address], [place], [place], [id number], 10:50:48 Keflex 500 mg capsule 2018 019 [email or web address] [place], [address], [place], [place], [id number], 10:50:24 Lexapro 10 mg tablet 2020 021 [facility] [place], [address], [place], [place], [id number], 11:32:46 Lo Loestrin Fe 1 mg-10 mcg (24)/10 mcg (2) tablet 2020 021 [facility] [place], [address], [place], [place], [id number], 11:32:46 ondansetro n HCl 4 mg tablet 2020 021 [facility] [place], [address], [place], [place], [id number], 11:32:43 Lexapro 10 mg tablet 2022 023 [facility] [place], [address], [place], [place], [id number], 3 17:12:39 hydroxyzin e HCl 25 mg tablet 2022 023 [facility] [place], [address], [place], [place], [id number], 3 17:12:37 Patient TargetsNo targets recorded. Patient Instructions Encounter Date Encounter Id Patient Instructions Last Modified By Organization Details Last Modified Time 04/12/2019 [id number] painful urinatio n (dysuria): care [facility] Not available 04/12/2019 11:39:11 10/29/2020 [id number] anxiety disorder : care instructions jnanney Not available 10/29/2020 11:31:54 learning about control: combination pills jnanney Not available 10/29/2020 11:31:54 migraine aura without a headache: care instructions anney Not available 10/29/2020 11:31:54 Reason for Referral None Reported. Results Created Date Observation Date Name Description Value Unit Range Abnormal Flag Note LastModifiedBy Organization Detail LastModifiedTime 07/21/1907/21/2018 pap, IG + refle x HR HPV (16+1 8) diagnosis: Commen t NEGAT ÁLVARO FOR INTRA EPITH ELIAL KALEIGH Figueroa OR ED BENEDICT . Not Available [facility] ([facility]) [address] [facility], [place], [address], 07/22/2018 11:16:08 07/21/1907/21/2018 pap, IG + refle x HR HPV (16+1 8) specimen adequacy: Commen t Satis facto ry for evalu ation . Endoc ervic al and/o r squam ous metap lasti c cells (endo cervi aleida compo nent) are prese nt. Not Available [facility] ([facility]) [address] [facility], [place], [address], 07/22/2018 11:16:08 07/21/1907/21/2018 pap, IG + refle x HR HPV (16+1 8) clinician provided ICD10: Commruthie t Z01.4 19 Not Available [facility] ([facility]) [address] [facility], [place], [address], 07/22/2018 11:16:08 07/21/19 19 07/21/2018 pap, IG + refle x HR HPV (16+1 8) performed by: Kourtney Rios (ASCP ) Not Available [facility] ([facility]) [address] [place], [address], 07/22/2018 11:16:08 07/21/19 19 07/21/2018 pap, IG + refle x HR HPV (16+1 8) . . Not Available [facility] ([facility]) [address] [facility], [place], [address], 07/22/2018 11:16:08 07/21/19 19 07/21/2018 pap, IG + refle x HR HPV (16+1 8) note: Demi cotto The Pap smear is a scree alexander test desig randee to aid in the detec tion of jl ligna nt and malig nant condi tions of the uteri ne cervi x. It is not a diagn ostic proce dure and shoul d not be used as the sole means of detec ting cervi aleida cance r. Both false -posi tive and false -nega tive repor ts do occur . Not Available [facility] ([facility]) [address] [facility], [place], [address], 07/22/2018 11:16:08 07/21/19 19 07/21/2018 pap, IG + refle x HR HPV (16+1 8) test methodology: Demi cotto This liqui d based ThinP rep(R ) pap test was scree randee with the use of an image guide mony systida m. Not Available [facility] ([facility]) [address] [place], [address], 07/22/2018 11:16:08 07/21/19 19 07/22/2018 pap, IG + refle x HR HPV (16+1 8) HPV, high-risk Negati ve negati ve This high- risk HPV test detec ts thirt een high- risk types (16/1 8/31/ 33/35 /39/4 5/51/ 52/56 /58/5 ) witho ut diffe renti ation . Not Available [facility] ([facility]) [address] [facility], [place], [address], 07/22/2018 11:16:08 07/21/1907/21/2018 hsv (1+2) igg Ab, serum hsv 1 IgG, type spec <0.91 index 0.00-0 .90 Negat álvaro <0.91 Equiv ocal 0.91 - 1.09 Posit álvaro >1.09 Note: Negat álvaro indic ates no antib odies detec elijah to HSV-1 . Equiv ocal may sugge st early infec tion. If clini salomón appro priat e, retes t at later date. Posit álvaro indic ates antib odies detec elijah to HSV-1 . Not Available [facility] ([facility]) [address] [facility], [place], [address], 07/22/2018 16:14:13 07/21/1907/21/2018 hsv (1+2) igg Ab, serum hsv 2 IgG, type spec <0.91 index 0.00-0 .90 Negat álvaro <0.91 Equiv ocal 0.91 - 1.09 Posit álvaro >1.09 Note: Negat álvaro indic ates no antib odies detec elijah to HSV-2 . Equiv ocal may sugge st early infec tion. If clini salomón appro priat e, retes t at later date. Posit álvaro indic ates antib odies detec elijah to HSV-2 . Not Available [facility] ([facility]) [address] [facility], [place], [address], 07/22/2018 16:14:13 07/21/1907/21/2018 RPR (rapi d plasm a reagi n), serum RPR Non Reacti ve non reacti ve Not Available [facility] ([facility]) [address] [facility], [place], [address], 07/22/2018 16:14:13 07/21/19 19 07/21/2018 HIV 1+2 AB + HIV 1 p24 Ag, quali tativ e immun oassa y, serum HIV screen 4TH generation wrfx Non Reacti ve non reacti ve Not Available [facility] ([facility]) [address] [place], [address], 07/22/2018 16:14:14 07/21/19 19 07/21/2018 hepat itis C Ab, signa l-to- cutof f, serum or plasm a HCV Ab <0.1 s/co_ ratio 0.0-0. 9 Not Available [facility] ([facility]) [address] [place], [address], 07/22/2018 16:14:15 07/21/19 19 07/21/2018 hepat itis C Ab, signa l-to- cutof f, serum or plasm a comment: Commen t Non react álvaro HCV antib luisana scree n is consi stent with no HCV infec tion, unles s recen t infec tion is suspe cted or other evide nce exist s to indic ate HCV infec tion. Not Available [facility] ([facility]) [address] [place], [address], 07/22/2018 16:14:15 07/21/1907/22/2018 herpe s simpl ex virus (1+2) Ab, IgM, QN, IA, serum hsv, IgM I/II combination 1.29 ratio 0.00-0 .90 above high normal Negat álvaro <0.91 Equiv ocal 0.91 - 1.09 Posit álvaro >1.09 Not Available [facility] ([facility]) [address] [place], [address], 07/22/2018 16:14:15 07/21/19 19 07/21/2018 HBsAg (hepa titis B surfa ce Ag), EIA, serum HBsAg screen Negati ve negati ve Not Available [facility] ([facility]) [address] [facility], [place], [address], 07/22/2018 16:14:16 11/20/19 19 11/20/2018 hsv (1+2) igg Ab, serum hsv 1 IgG, type spec <0.91 index 0.00-0 .90 Negat álvaro <0.91 Equiv ocal 0.91 - 1.09 Posit álvaro >1.09 Note: Negat álvaro indic ates no antib odies detec elijah to HSV-1 . Equiv ocal may sugge st early infec tion. If clini salomón appro priat e, retes t at later date. Posit álvaro indic ates antib odies detec elijah to HSV-1 . Not Available [facility] ([facility]) [address] [facility], [place], [address], 11/23/2018 16:10:41 11/20/19 19 11/20/2018 hsv (1+2) igg Ab, serum hsv 2 IgG, type spec <0.91 index 0.00-0 .90 Negat álvaro <0.91 Equiv ocal 0.91 - 1.09 Posit álvaro >1.09 Note: Negat álvaro indic ates no antib odies detec elijah to HSV-2 . Equiv ocal may sugge st early infec tion. If clini salomón appro priat e, retes t at later date. Posit álvaro indic ates antib odies detec elijah to HSV-2 . Not Available [facility] ([facility]) [address] [facility], [place], [address], 11/23/2018 16:10:41 11/20/1911/20/2018 RPR (rapi d plasm a reagi n), serum RPR Non Reacti ve non reacti ve Not Available [facility] ([facility]) [address] [facility], [place], [address], 11/23/2018 16:10:41 11/20/1911/20/2018 HIV 1+2 AB + HIV 1 p24 Ag, quali tativ e immun oassa y, serum HIV screen 4TH generation wrfx Non Reacti ve non reacti ve Not Available [facility] ([facility]) [address] [facility] [address], [place], [address], 11/23/2018 16:10:42 11/20/1911/20/2018 hepat itis C Ab, signa l-to- cutof f, serum or plasm a HCV Ab <0.1 s/co_ ratio 0.0-0. 9 Not Available [facility] ([facility]) [address] [facility], [place], [address], 11/23/2018 16:10:43 11/20/1911/20/2018 hepat itis C Ab, signa l-to- cutof f, serum or plasm a comment: Commen t Non react álvaro HCV antib luisana scree n is consi stent with no HCV infec tion, unles s recen t infec tion is suspe cted or other evide nce exist s to indic ate HCV infec tion. Not Available [facility] ([facility]) [address] [facility], [place], [address], 11/23/2018 16:10:43 11/20/1911/23/2018 herpe s simpl ex virus (1+2) Ab, IgM, QN, IA, serum hsv, IgM I/II combination 1.31 ratio 0.00-0 .90 above high normal Negat álvaro <0.91 Equiv ocal 0.91 - 1.09 Posit álvaro >1.09 Not Available [facility] ([facility]) [address] [facility], [place], [address], 11/23/2018 16:10:43 11/20/1911/20/2018 HBsAg (hepa titis B surfa ce Ag), EIA, serum HBsAg screen Negati ve negati ve Not Available [facility] ([facility]) [address] [facility], [place], [address], 11/23/2018 16:10:44 11/20/1911/23/2018 bacte rial vagin osis + vagin itis panel , vagin al atopobium vaginae Modera te - 1 score Not Available [facility] ([facility]) [address] [place], [address], 11/24/2018 07:11:22 11/20/1911/23/2018 bacte rial vagin osis + vagin itis panel , vagin al bvab 2 Low - 0 score Not Available [facility] ([facility]) [address] [facility], [place], [address], 11/24/2018 07:11:22 11/20/1911/23/2018 bacte rial vagin osis + vagin itis panel , vagin al megasphaera 1 Low - 0 score Calcu late total score by ailyn sheriff the 3 indiv idual bacte rial vagin osis (BV) marke r score s toget her. Total score is inter prete d as follo ws: Total score 0-1: Indic ates the absen ce of BV. Total score 2: Indet ermin ate for BV. Addit ional clini aleida data shoul d be evalu ated to estab pina a diagn osis. Total score 3-6: Indic ates the prese nce of BV. This test was devel oped and its perfo rmanc e emmie cteri stics deter mined by [facility]. It has not been clear ed or appro mariano by the Food and Drug Admin istra tion. The FDA has deter mined that such clear ance or appro micaela is not neces lisa. Not Available [facility] ([facility]) [address] [facility] [address], [place], [address], 11/24/2018 07:11:22 11/20/1911/23/2018 bacte rial vagin osis + vagin itis panel , vagin al nimco albicans, BOBBY Negati ve negati ve Not Available [facility] ([facility]) [address] [facility], [place], [address], 11/24/2018 07:11:22 11/20/1911/23/2018 bacte rial vagin osis + vagin itis panel , vagin al nimco glabrata, BOBBY Negati ve negati ve This test was abhay wetzel and its perfo rmanc e emmie cteri stics deter mined by [facility]. It has not been clear ed or appro mariano by the Food and Drug Admin istra tion. The FDA has deter mined that such clear ance or appro micaela is not neces lisa. Not Available [facility] ([facility]) [address] [place], [address], 11/24/2018 07:11:22 11/20/1911/23/2018 bacte rial vagin osis + vagin itis panel , vagin al trich vag by BOBBY Negati ve negati ve Not Available [facility] ([facility]) [address] [place], [address], 11/24/2018 07:11:22 11/20/19 19 11/23/2018 bacte rial vagin osis + vagin itis panel , vagin al chlamydia trachomatis, BOBBY Negati ve negati ve Not Available [facility] ([facility]) [address] [place], [address], 11/24/2018 07:11:22 11/20/1911/23/2018 bacte rial vagin osis + vagin itis panel , vagin al neisseria gonorrhoeae, BOBBY Negati ve negati ve Not Available [facility] ([facility]) [address] [place], [address], 11/24/2018 07:11:22 04/12/20 19 04/12/2019 pregn nelly test, urine HCG negati ve Not Available In-Office Order Internal Use Only DO Not Attach Compendium DO Not Attach Compendium, Do Not Delete/merge, [id number] 04/12/2019 11:21:11 04/12/20 19 04/12/2019 urina lysis , dipst ick Leukocytes Negati ve Not Available In-Office Order Internal Use Only DO Not Attach Compendium DO Not Attach Compendium, Do Not Delete/merge, [id number] 04/12/2019 11:19:40 04/12/20 19 04/12/2019 urina lysis , dipst ick Nitrite negati ve Not Available In-Office Order Internal Use Only DO Not Attach Compendium DO Not Attach Compendium, Do Not Delete/merge, [id number] 04/12/2019 11:19:40 04/12/20 19 04/12/2019 urina lysis , dipst ick Urobilinogen .2 Not Available In-Of fice Order Internal Use Only DO Not Attach Compendium DO Not Attach Compendium, Do Not Delete/merge, [id number] 04/12/2019 11:19:40 04/12/20 19 04/12/2019 urina lysis , dipst ick Protein Negati ve Not Available In-Office Order Internal Use Only DO Not Attach Compendium DO Not Attach Compendium, Do Not Delete/merge, [id number] 04/12/2019 11:19:40 04/12/2004/12/2019 urina lysis , dipst ick pH 6.5 Not Available In-Office Order Internal Use Only DO Not Attach Compendium DO Not Attach Compendium, Do Not Delete/merge, [id number] 04/12/2019 11:19:40 04/12/20 19 04/12/2019 urina lysis , dipst ick Blood Negati ve Not Available In-Office Order Internal Use Only DO Not Attach Compendium DO Not Attach Compendium, Do Not Delete/merge, [id number] 04/12/2019 11:19:40 04/12/2004/12/2019 urina lysis , dipst ick Specific Schaller 1.030 Not Available In-Off ice Order Internal Use Only DO Not Attach Compendium DO Not Attach Compendium, Do Not Delete/merge, [id number] 04/12/2019 11:19:40 04/12/20 19 04/12/2019 urina lysis , dipst ick Ketone Negati ve Not Available In-Office Order Internal Use Only DO Not Attach Compendium DO Not Attach Compendium, Do Not Delete/merge, [id number] 04/12/2019 11:19:40 04/12/20 04/12/2019 urina lysis , dipst ick Bilirubin Negati ve Not Available In-Office Order Internal Use Only DO Not Attach Compendium DO Not Attach Compendium, Do Not Delete/merge, [id number] 04/12/2019 11:19:40 04/12/20 19 04/12/2019 urina lysis , dipst ick Glucose Negati ve Not Available In-Office Order Internal Use Only DO Not Attach Compendium DO Not Attach Compendium, Do Not Delete/merge, [id number] 04/12/2019 11:19:40 04/12/20 19 04/12/2019 urina lysis , dipst ick Appearance Slight ly Cloudy Not Available In-Office Order Internal Use Only DO Not Attach Compendium DO Not Attach Compendium, Do Not Delete/merge, [id number] 04/12/2019 11:19:40 04/12/20 19 04/12/2019 urina lysis , dipst ick Color Yellow Not Available In-Office Order Internal Use Only DO Not Attach Compendium DO Not Attach Compendium, Do Not Delete/merge, [id number] 04/12/2019 11:19:40 10/30/19 21 2020 TSH+F REE T4 TSH 1.120 uIU/m L 0.450- 4.500 Not Available [facility] ([facility]) [address] [place], [address], 2020 11:27:53 10/30/19 21 2020 TSH+F REE T4 T4,free(dire ct) 1.39 NG/dL 0.82-1 .77 Not Available [facility] ([facility]) [address] [place], [address], 2020 11:27:53 10/30/19 21 2020 COMP. METAB OLIC PANEL (14) glucose 86 mg/dL 65-99 Not Available [facility] ([facility]) [address] [place], [address], 2020 11:27:54 10/30/19 21 2020 COMP. METAB OLIC PANEL (14) BUN 12 mg/dL 6-20 Not Available [facility] ([facility]) [address] [facility], [place], [address], 2020 11:27:54 10/30/19 21 2020 COMP. METAB OLIC PANEL (14) creatinine 0.77 mg/dL 0.57-1 .00 Not Available [facility] ([facility]) [address] [facility], [place], [address], 2020 11:27:54 10/30/19 21 2020 COMP. METAB OLIC PANEL (14) eGFR if nonafricn AM 107 mL/mi n/1.7 3 >59 Not Available [facility] ([facility]) [address] [facility], [place], [address], 2020 11:27:54 10/30/19 21 2020 COMP. METAB OLIC PANEL (14) eGFR if africn AM 123 mL/mi n/1.7 3 >59 Lab rylan curre ntly repor ts eGFR in compl iance with the curre nt recom menda tions of the [employer]io n[employer] y [employer] ation . [facility] will updat e repor ting as new guide lines are publi shed from the NKF-A SN Task force . Not Available [facility] ([facility]) [address] [facility], [place], [address], 2020 11:27:54 10/30/19 21 2020 COMP. METAB OLIC PANEL (14) BUN/creatini ne ratio 16 9-23 Not Available [facility] ([facility]) [address] [facility], [place], [address], 2020 11:27:54 10/30/19 21 2020 COMP. METAB OLIC PANEL (14) sodium 136 mmol/ L 134-14 4 Not Available [facility] ([facility]) [address] [place], [address], 2020 11:27:54 10/30/19 21 2020 COMP. METAB OLIC PANEL (14) potassium 5.0 mmol/ L 3.5-5. 2 Not Available [facility] ([facility] [address] [place], [address], 2020 11:27:54 10/30/19 21 2020 COMP. METAB OLIC PANEL (14) chloride 100 mmol/ L 96-106 Not Available [facility] ([facility] [address] [place], [address], 2020 11:27:54 10/30/19 21 2020 COMP. METAB OLIC PANEL (14) carbon dioxide, total 23 mmol/ L 20-29 Not Available [facility] ([facility]) [address] [facility] [place], [address], 2020 11:27:54 10/30/19 21 2020 COMP. METAB OLIC PANEL (14) calcium 9.6 mg/dL 8.7-10 .2 Not Available [facility] ([facility]) [address] [facility], [address], 2020 11:27:54 10/30/19 21 2020 COMP. METAB OLIC PANEL (14) protein, total 7.7 g/dL 6.0-8. 5 Not Available [facility] ([facility]) [address] [facility] [place], [address], 2020 11:27:54 10/30/19 21 2020 COMP. METAB OLIC PANEL (14) albumin 4.6 g/dL 3.9-5. 0 Not Available [facility] ([facility]) [address] [facility] [place], [address], 2020 11:27:54 10/30/19 21 2020 COMP. METAB OLIC PANEL (14) globulin, total 3.1 g/dL 1.5-4. 5 Not Available [facility] ([facility]) [address] [facility] [place], [address], 2020 11:27:54 10/30/19 21 2020 COMP. METAB OLIC PANEL (14) A/G ratio 1.5 1.2-2. 2 Not Available [facility] ([facility]) [address] [facility] [place], [address], 2020 11:27:54 10/30/19 21 2020 COMP. METAB OLIC PANEL (14) bilirubin, total 0.5 mg/dL 0.0-1. 2 Not Available [facility] ([facility]) [address] [facility], [place], [address], 2020 11:27:54 10/30/19 21 2020 COMP. METAB OLIC PANEL (14) alkaline phosphatase 41 IU/L 48-121 below low normal Not Available [facility] ([facility]) [address] [facility], [place], [address], 2020 11:27:54 10/30/19 21 2020 COMP. METAB OLIC PANEL (14) AST (SGOT) 11 IU/L 0-40 Not Available [facility] ([facility]) [address] [facility] [place], [address], 2020 11:27:54 10/30/19 21 2020 COMP. METAB OLIC PANEL (14) ALT (SGPT) 13 IU/L 0-32 Not Available [facility] ([facility]) [address] [facility], [place], [address], 2020 11:27:54 10/30/19 21 2020 CBC, PLATE LET, NO DIFFE RENTI AL WBC 5.5 x10e3 /uL 3.4-10 .8 Not Available [facility] ([facility]) [address] [facility], [place], [address], 2020 11:27:55 10/30/19 21 2020 CBC, PLATE LET, NO DIFFE RENTI AL RBC 3.99 x10e6 /uL 3.77-5 .28 Not Available [facility] ([facility]) [address] [facility], [place], [address], 2020 11:27:55 10/30/1910/30/2020 CBC, PLATE LET, NO DIFFE RENTI AL hemoglobin 12.7 g/dL 11.1-1 5.9 Not Available [facility] ([facility]) [address] [facility], [place], [address], 2020 11:27:55 10/30/19 21 2020 CBC, PLATE LET, NO DIFFE RENTI AL hematocrit 38.3 % 34.0-4 6.6 Not Available [facility] ([facility]) [address] [facility], [place], [address], 2020 11:27:55 10/30/1910/30/2020 CBC, PLATE LET, NO DIFFE RENTI AL MCV 96 fL 79-97 Not Available [facility] ([facility]) [address] [place], [address], 2020 11:27:55 10/30/1910/30/2020 CBC, PLATE LET, NO DIFFE RENTI AL MCH 31.8 pg 26.6-3 3.0 Not Available [facility] ([facility]) [address] [place], [address], 2020 11:27:55 10/30/19 21 2020 CBC, PLATE LET, NO DIFFE RENTI AL MCHC 33.2 g/dL 31.5-3 5.7 Not Available [facility] ([facility]) [address] [place], [address], 2020 11:27:55 10/30/19 21 2020 CBC, PLATE LET, NO DIFFE RENTI AL RDW 12.5 % 11.7-1 5.4 Not Available [facility] ([facility]) [address] [facility], [place], [address], 2020 11:27:55 10/30/19 21 2020 CBC, PLATE LET, NO DIFFE RENTI AL platelets 240 x10e3 /uL 150-45 0 Not Available [facility] ([facility]) [address] [place], [address], 2020 11:27:55 10/30/19 21 2020 CBC, PLATE LET, NO DIFFE RENTI AL NRBC [employer]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 Not Available [facility] ([facility]) [address] [place], [address], 2020 11:27:55 10/30/19 21 2020 LIPID PANEL cholesterol, total 200 mg/dL 100-19 9 above high normal Not Available [facility] ([facility]) [address] [place], [address], 2020 11:27:55 10/30/19 21 2020 LIPID PANEL triglyceride s 101 mg/dL 0-149 Not Available [facility] ([facility]) [address] [place], [address], 2020 11:27:55 10/30/19 21 2020 LIPID PANEL HDL cholesterol 53 mg/dL >39 Not Available [facility] ([facility]) [address] [place], [address], 2020 11:27:55 10/30/19 21 2020 LIPID PANEL VLDL cholesterol aleida 18 mg/dL 5-40 Not Available [facility] ([facility]) [address] [facility], [place], [address], 2020 11:27:55 10/30/19 21 2020 LIPID PANEL LDL chol calc ([facility]) 129 mg/dL 0-99 above high normal Not Available [facility] ([facility]) [address] [facility], [place], [address], 2020 11:27:55 10/30/19 21 2020 LIPID PANEL comment: HARD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 Not Available [facility] ([facility]) [address] [facility], [place], [address], 2020 15:37:48 10/30/19 21 2020 CARDI OVASC ULAR REPOR T pdf . Not Available [facility] ([facility]) [address] [facility], [place], [address], 2020 15:37:48 03/21/20 20 03/21/2020 US, obste tric No observ [facility]ion [facility] ed[email or web address] [address], [place], [address], 03/21/2020 17:31:26 08/19/19 23 08/18/2022 US, pelvi s, compl ete No observ ation [facility] ed. [facility] [address] [facility] [address], [place], [address], 08/19/2022 09:20:02 10/28/19 24 10/28/2023 US, obste tric No observ ation record ed. [place] [address] [facility] [address], [place], [address], 10/29/2023 12:33:07 12/07/19 24 12/07/2023 US, obste tric No observ ation record ed. [facility] [address] [facility] [address], [place], [address], 12/08/2023 09:14:35 04/10/20 24 04/10/2024 CT, abdom en + pelvi s, w/ contr ast No observ ation record ed. [facility] [address] [place], [address], 04/11/2024 09:26:42 Result Notes None recorded. Problems Name Problem SNOMED Code Status Onset Date Resolution Date Notes Provider Name and Address Organization Details Recorded Time Upper respiratory infection [id number] Active Oleg Maza PA-C Attn: José Miguel g,[address] [facility], [place], [address], [facility] 6 10:32:50 Problem Notes None recorded. Procedures Surgical History Date Name Laterality Status Provider Name and Address Organization Details Recorded Time 0 section completed Ana Marvin MA [place] [facility] 10/29/2020 10:54:45 0 Date of Last Pap Smear completed Ana Marvin MA [place] [facility] 10/29/2020 10:52:55 9 Control Implant Removal completed WILLOW Shelton Attn: Accounting,[address] [place], [address], [place] [facility] 11/19/2018 11:31:14 8 Control Implant Insertion completed WILLOW Shelton Attn: Accounting,[address] [place], [address], [place] [facility] 07/23/2017 12:11:21 Imaging Results Imaging Date Name Status LastModified by Organiz ation Details LastModified Time 03/21/2020 US, obstetric completed [facility] [address] [facility] [address], [place], [address], 03/21/2020 17:31:26 08/18/2022 US, pelvis, complete completed [facility] [address], [place], [address], 08/19/2022 09:20:02 10/28/2023 US, obstetric completed [facility] [address] [facility] [address], [place], [address], 10/29/2023 12:33:07 12/07/2023 US, obstetric completed [facility] [address] [facility] [address], [place], [address], 12/08/2023 09:14:35 04/10/2024 CT, abdomen + pelvis, w/ contrast completed [facility] [address] [place], [address], 04/11/2024 09:26:42 Procedure Notes None recorded. Medical Equipment None Reported. Allergies No known drug allergies Medications Name Sig Start Date Stop Date Status Note LastModified by Organization Details LastModified Time nifedipine ER 30 mg tablet,exte nded release 24 hr TAKE 1 TABLET BY MOUTH IN THE MORNING 10/29 completed Not Available Not Available Not Available labetalol 200 mg tablet TAKE 1 TABLET BY MOUTH TWICE A DAY 10/29 completed Not Available Not Available Not Available polyethylen e glycol 3350 17 gram oral powder packet mix 17g with 8oz of water twice daily 10/29 completed Not Available Not Available Not Available fluconazole 150 mg tablet TAKE 1 TABLET ONCE 10/29 completed Not Available Not Available Not Available hydrocodone 5 mg-acetamin ophen 325 mg tablet TAKE 1 TABLET BY MOUTH EVERY 3 HOURS NEEDED 10/29 completed Not Available Not Available Not Available fluconazole 200 mg tablet Take 1 tablet every 72 hours by oral route as directed. 10/29 completed Not Available Not Available Not Available ondansetron HCl 4 mg tablet Take 1 tablet as needed by oral route. active Not Available Not Available No t Available Ferrex 150 mg iron capsule TAKE 1 CAPSULE BY MOUTH DAILY AT 8 AM 10/29 completed Not Available Not Available Not Available phentermine 37.5 mg tablet TAKE 1 TABLET BY MOUTH EVERY DAY active Not Available Not Available No t Available alprazolam 0.25 mg tablet TAKE 1 TABLET BY MOUTH 3 TIMES A DAY NEEDED 10/29 completed Not Available Not Available Not Available ciprofloxac in 0.3 % eye drops 3 drops to affected eye tid for 7 days 01/27 completed Not Available Not Available Not Available Flagyl 500 mg tablet Take 1 tablet twice a day by oral route as directed for 7 days. 01/27 completed Not Available Not Available Not Available rizatriptan 10 mg disintegrat ing tablet Take 1 tablet by oral route as directed. active Not Available Not Available No t Available cephalexin 500 mg capsule TAKE 1 CAPSULE BY MOUTH EVERY 6 HOURS FOR 5 DAYS 10/29 completed Not Available Not Available Not Available Cipro 500 mg tablet Take 1 tablet every 12 hours by oral route for 10 days. 04/12 completed Not Available Not Available Not Available buspirone 10 mg tablet Take 1 tablet twice a day by oral route for 30 days. 10/29 completed Not Available Not Available Not Available docusate sodium 100 mg capsule TAKE 1 CAPSULE BY MOUTH TWICE A DAY 10/29 completed Not Available Not Available Not Available hydroxyzine HCl 25 mg tablet Take 1 tablet 3 times a day by oral route as needed for 30 days. 2022 active Not Available Not Available Not Avai lable ibuprofen 600 mg tablet TAKE 1 TABLET BY MOUTH EVERY 6 HOURS NEEDED FOR CRAMPING 10/29 completed Not Available Not Available Not Available polyethylen e glycol 3350 17 gram/dose oral powder MIX 17 GRAMS OF POWDER WITH 8 OUNCES OF WATER AND DRINK TWICE DAILY 10/29 completed Not Available Not Available Not Available azithromyci n 500 mg tablet Take 1 tablet every day by oral route for 3 days. active Not Available Not Available No t Available Lexapro 10 mg tablet Take 1 tablet every day by oral route for 30 days. 2022 active Not Available Not Available Not Avai lable Lo Loestrin Fe 1 mg-10 mcg (24)/10 mcg (2) tablet TAKE ONE TABLET BY MOUTH DAILY DIRECTED active Not Available Not Available No t Available Loryna (28) 3 mg-0.02 mg tablet Take 1 tablet(s) every day by oral route as directed for 28 days. 10/29 completed Not Available Not Available Not Available polyethylen e glycol 3350 (bulk) granules Mix 17 Grams with 8 ounces of Water, Juice, Soda, Coffee or Tea and Drink Twice Daily 01/27 completed Not Available Not Available Not Available Xulane 150 mcg-35 mcg/24 hr transdermal patch Apply 1 patch every week by transderm al route. 12/31 completed Not Available Not Available Not Available Vitals Date Recorded Body height Body mass index (BMI) Body weight Systolic blood pressure Diastolic blood pressure Provider Name and Address Organization Details Last Updated DateTime 07/20/2018 165.1 cm 24.1 kg/m2 60366.49 g 126 mm[Hg] 72 mm[Hg] Mary Mariscal MA [facility] 9 09:40:03 Date Recorded Body height Body mass index (BMI) Body weight Systolic blood pressure Diastolic blood pressure Provider Name and Address Organization Details Last Updated DateTime 11/19/2018 165.1 cm 23.5 kg/m2 98761.52 g 122 mm[Hg] 72 mm[Hg] Angelika Ramos MA [facility] 9 11:07:53 Date Recorded Body height Body mass index (BMI) Body weight Oxygen saturation Oxygen saturation in Arterial blood by Pulse oximetry Heart rate Systolic blood pressure Diastolic blood pressure Provider Name and Address Organization Details Last Updated DateTime 9 165.1 cm 25.3 kg/m2 22957.0 4 g 98 % 98 % 100 /min 130 mm[Hg] 82 mm[Hg] Melanie Peres MA [facility] 9 11:11:50 Date Recorded Body temperature Oxygen saturation Oxygen saturation in Arterial blood by Pulse oximetry Heart rate Body height Body mass index (BMI) Body weight Systolic blood pressure Diastolic blood pressure Provider Name and Address Organization Details Last Updated DateTime 1 97.7 [degF] 99 % 99 % 88 /min 165.1 cm 28 kg/m2 48050.9 2 g 122 mm[Hg] 88 mm[Hg] Ana Marvin MA [facility] 1 10:57:20 Date Recorded Body weight Body mass index (BMI) Body height Oxygen saturation Oxygen saturation in Arterial blood by Pulse oximetry Heart rate Respiratory rate Body temperature Systolic blood pressure Diastolic blood pressure Provider Name and Address Organization Details Last Updated DateTime 3 27618.9 3 g 24 kg/m2 162.56 cm 98 % 98 % 68 /min 16 /min 98 [degF] 120 mm[Hg] 72 mm[Hg] Oleg Maza PA-C Attn: José Miguel ,[address] [place], [address], [facility] 3 17:03:54 Social History Question Answer Notes LastModified by Carter-Watersizat ion Details LastModified Time Tobacco Smoking Status Never Smoker [facility], [facility] 07/18/2015 09:59:09 What Is Your Level Of Alcohol Consumption? None Information not available 10/29/2020 What Is Your Level Of Caffeine Consumption? Occasional Information not available 10/29/2020 In The 14 Days Before Symptom Onset, Have You Had Close Contact With A Laboratory-confirm ed COVID-19 While That Case Was Ill? No Information n ot available 10/29/2020 In The 14 Days Before Symptom Onset, Have You Had Close Contact With A Person Who Is Under Investigation For COVID-19 While That Person Was Ill? No Information not available 10/29/2020 Have You Been To An Area Known To Be High Risk For COVID-19? No Information not available 10/29/2020 Are You Currently Employed? Yes Information not available 10/29/2020 What Type Of Diet Are You Following? 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 10/29/2020 Information not available 10/29/2020 What Is Your Relationship Status? Single Information not available 10/29/2020 Do You Have Smoke And Carbon Monoxide Detectors In Your Home? Yes Information not available 10/29/2020 Are You Passively Exposed To Smoke? No Information no t available 10/29/2020 Do You Feel Stressed (tense, Restless, Nervous, Or Anxious, Or Unable To Sleep At Night)? [id number] Information not available 10/29/2020 Do You Use Any Illicit Or Recreational Drugs? No Information not available 10/29/2020 Has Tobacco Cessation Counseling Been Provided? No Information not available 10/29/2020 On What Date Was Tobacco Cessation Counseling Provided? 10/29/2020 Information not available 10/29/2020 Do You Or Have You Ever Used Any Other Forms Of Tobacco Or Nicotine? No Information not available 10/29/2020 Sex: Unknown Functional Status Question Answer Note LastModified by Organization D etails LastModified Time Are you able to care for yourself? Yes Information n ot available 10/29/2020 Mental Status None recorded. Family History Relationship Description Onset Age of this Age Resolved Age Notes LastModified by Organization Details LastModified Time Mother Malignant neoplasm of uterus Not available 12/13 10:13:12 Mother Hysterectomy Not av ailable 01/01/2016 10:13:12 Maternal Aunt Malignant neoplasm of uterus Not available 12/13 10:13:12 Maternal Aunt Hysterectomy Not available 01/01/2016 10:13:12 Maternal Grandmother Malignant neoplasm of uterus Not available 12/13 10:13:12 Maternal Grandmother Hysterectomy Not availab le 01/01/2016 10:13:12 Medical History Condition Response Other N High Blood Pressure N Breast Cancer N Thyroid Problems N Kidney or Bladder Problems N Lung Disease N GI Problems N Depression N Blood Clots N Acne N Breast Problem N Eating Disorder N Anemia N Anesthesia Complications N Headaches/Migraines N Ovarian Cancer N Diabetes N Anxiety Disorder N Muscle, Joint, or Bone Problems N Blood Transfusions N Seizures/Epilepsy N Polyps N Infertility N Acid Reflux (GERD) N Cancer N Abuse/Domestic Violence N Asthma N Endometriosis N High Cholesterol N Hepatitis N Liver Disease N Heart Disease N Pre-Eclampsia N Osteoporosis N Gynecological History Statement/Question Response Flow Moderate Date of LMP 09/30/2020 STIs/STDs N Duration of Flow (days) 5 Age at Menarche 8 Current Control Method BCPs Sexually Active? Y Menses Monthly Y Date of Last Pap Smear 03/13/2020 LMP Approximate Desired Control Method Implant Obstetrics History GPAL:G 0 P 1 0 0 0 Type Value Full Term 1 Living 0 Total 0 Immunizations Vaccine Type Date Status Note Provider Nam e and Address Organization Details Recorded Time COVID-19, mRNA, LNP-S, PF, 30 mcg/0.3 mL dose 05/15/2020 completed MARTY Harper, [place] - [facility] 10/29/2020 10:51:42 COVID-19, mRNA, LNP-S, PF, 30 mcg/0.3 mL dose 06/12/2020 completed Ana Marvin MA null, [place] - [facility] 10/29/2020 10:51:53 Past Encounters Encounter ID Performer Location Encounter Start Date Encounter Closed Date Diagnosis/Indication Diagnosis SNOMED-CT Code Diagnosis ICD10 Code Diagnosis Note [id number] Kassi Sommers [facility] Jamey Womens ([facility] 122) 2 [facility] [address] [place] [address] 07/18/2015 09:44:33 07/18/2015 13:06:20 Gynecologic examination 75578664 Z01.419 [id number] ERICK Mederos [facility] [address] [place] [address] 01/01/2016 09:58:31 01/01/2016 11:02:37 Upper respiratory infection 44370260 J06.9 [id number] Mi Suarez [facility] [address] [place] [address] 05/14/2016 13:54:58 05/14/2016 16:47:55 Venereal disease screening 536069721 Z11.3 Dyspareunia 97061043 N94 .10 [id number] Mi Connor [facility] [address] [place] [address] 12/17/2016 08:54:50 12/17/2016 13:02:50 Abnormal cervical Papanicolaou smear 737235253 R87.619 Gynecologi c examination 30841679 Z01.419 Contracept ion care management 871253445 Z30.9 [id number] Oleg Maza PA-C [facility] [address] [place] [address] 01/27/2017 18:47:36 01/27/2017 19:27:01 Anxiety 99674816 F41.1 [id number] Mi Suarez [facility] [address] [place] [address] 07/15/2017 08:55:14 07/15/2017 14:27:01 Contraception care management 684339691 Z30.9 Dyspareunia 86825388 N94 .10 Obesity 512279945 E66.9 [id number] Mi Suarez [facility] [address] [place] [address] 07/22/2017 09:13:46 07/24/2017 10:00:10 Insertion of subcutaneous contraceptive 073458762 Z30.9 [id number] Mi Suarez [facility] 14 OB [address] [facility] [address] [place] [address] 07/20/2018 09:28:24 07/21/2018 08:45:39 Gynecologic examination 69234620 Z01.419 1. Counseled regarding prevention of STD's , condom use and prevention . 2. Counseled regarding contracept álvaro options, risk factors and side effects. 3. Advised avoidance of tobacco, alcohol, and drugs . 4. Counseled regarding folic acid supplement ation, calcium needs and prevention of osteoporos is . 5. BSE reviewed and recommende d. 6. Follow up in one year or sooner if needed. Venereal d isease screening 836170073 Z11.3 1. STD testing done per pt request 2. Educated pt on STD prevention , Condom use 3. Pt verbalized understand ing 4. Will follow up pending lab results, as needed or at next annual [id number] Mi Suarez [employer]- Jamey 14 OB [address] [facility] [place] [address] 11/19/2018 10:53:45 11/22/2018 11:18:17 Vaginal irritation 727485508 N89.8 Nuswab done and sent to lab. Counseled on STD prevention and condom use. Counseled on yeast and BV prevention . Will follow up pending lab results. Removal of subcutaneous contraceptive 292099903 Z30.46 1. All forms of control reviewed with patient including risks, benefits, pros and cons. 2. Patient verbalized understand ing of all forms and that abstinence is the only true form of control. 3. Condom use reviewed as well and prevention and transmissi on of STD's. Uses oral contraception 3024441 Z30.41 1. Reviewed all forms of control with patient including risk factors and side effects. 2. Counseled on STD transmissi on and prevention , condom use and prevention . 3. Pt would like to start with OCP. Educated on correct use and side effects. Will send rx to pharmacy. 4. Follow up for med check in 3 months or sooner if needed. [id number] Oleg Maza PA-C [facility] [address] [place] [address] 04/12/2019 11:03:37 04/12/2019 12:20:21 Low back pain 253918302 M54.5 Backache w ith radiating pain 274432400 M54.9 Nausea 968099277 R11.0 Dysuria 63232952 R30.9 [id number] Oleg Maza PA-C [facility] [address] [place] [address] 10/29/2020 10:41:35 10/29/2020 12:00:37 Elevated blood-pressure reading without diagnosis of hypertension 253648394 R03.0 Generalize d anxiety disorder 91123490 F41.1 Migraine with aura 76384 06 G43.109 Uses oral contraception 1562470 Z30.41 [id number] Oleg Maza PA-C [facility] [address] [place] [address] 02/09/2023 16:50:54 02/10/2023 08:46:53 Generalized anxiety disorder 81848603 F41.1 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 Health Concerns Section Related Observation LastModified by Organization Detai ls LastModified Time None Recorded Concern Status LastModified by Organization Details LastModified Time None Recorded Advance Directives Directive None Recorded Payers Encounter Date Sequence Insurance Name Policy Number Policy Yanez Covered Member ID Yanez Member ID Guarantor Name 07/20/2018 1 [employer] (POS II) [id number] Tyson Rodriguez [id number] Conchita Rodriguez 11/19/2018 1 [employer] (POS II) [id number] Tyson Rodriguez [id number] Conchita Rodriguez 04/12/2019 1 [employer] ([place] II) [id number] Tyson Rodriguez [id number] Conchita Rodriguez 10/29/2020 1 [facility] [id number] Conchita A Rodriguez [id number] Conchita Rodriguez 10/29/2020 1 [facility] (MEDICAID REPLACEMENT - HMO) [id number] Conchita Rodriguez [id number] Conchita Rodriguez 02/09/2023 1 [facility] [id number] Conchita A So [id number] Conchita Rodriguez 02/09/2023 2 [place] [facility] Conchita Rodriguez [id number] Conchita Rodriguez Notes Date Note Type Note Provider Name and Address Organization Details Recorded Time 07/20/2018 text/html Annual GYNReport ed bypatient.History: no gynecologic complaints Menstrual cycle:Normal menses Urinary symptoms:No hematuria; No incontinence Vulva:No genital lesion Vagina:Normal vaginal discharge Breast:No breast pain; No breast lump; No nipple discharge Current Contraception:Sati sfied with current contraception; Requests testing for sexually transmitted infections; Nexplanon Sexual complaints:No sexual complaints; No pain during intercourse; Normal libido Menopausal Symptoms:No menopausal symptoms; Normal vaginal lubrication Psychological symptoms:No depression; No anxiety; No PMDD Preventive measures:Encourage self breast examination; Encourage regular exercise; Encourage no tobacco use Patient here for annual. Currently on Nexplanon and likes it. WILLOW Shelton Attn: Accounting,[address] [facility], [place], [address], [facility] 07/20/2018 09:54:40 11/19/2018 text/html Would like nexplanon out and std testing. States has had for one year, 3 months after insertion she has cycles of vaginal burning. has tried changing soaps etc. states lower pelvic pain during sex and back pain. WILLOW Shelton Attn: Accounting,[address] [facility], [place], [address], [facility] 11/19/2018 11:32:45 04/12/2019 text/html spotting...has n ot seen OB yet...nausea..tire d..says shewas taking antibiotics for what she presumed uti and has some improvement Oleg Maza PA-C Attn: Accounting, [address] [facility], [place], [address], [facility] - [facility] 04/12/2019 11:40:49 10/29/2020 text/html Presents for concern for high blood pressure x3 months. She takes her blood pressure at home, and it's been around 140-150's systolic. She reports an increase in left-sided migraines. Associated with bilateral blurred vision, occasional emesis, and flushing. She reports taking excedrin with relief. She had gestational hypertension and delivered in 03/2020. In addition, she reports emesis and diarrhea when she has a lot of anxiety. She reports an increase in stress lately. Oleg Maza PA-C Attn: Accounting,[address] [facility], [place], [address], [facility] 10/29/2020 11:36:14 02/09/2023 text/html having issues wi th anxiety again...wants meds back for anxiety depression Oleg Maza PA-C Attn: Accounting,[address] [facility], [place], [address], [place] [facility] 02/09/2023 17:12:27 OBGyn Episode No OBEpisode recorded.
== END 2024-04-10 09:09 | disposition home or self-care (01) ==
PROVIDERS: Emergency Provider Emergency Medicine; PCP Physician Assistant
DX: N20.1 Calculus of ureter (principal)
CPT/HCPCS: 36415; 74177; 80053; 81001; 83690; 84703; 85025; 96361; 96374; 96375; 99284; A9270; J1885; J2270; J2405; J7030; Q9967